=== PATIENT | female | born 1970 | race Caucasian/White ===

== ENCOUNTER 2018-03-23 17:08 | Inpatient (IN) | payer OTHER ==
[2018-03-23] MEDS ORDERED: NS 1,000 ML IV ONE ×3 (17:43→18:51)
--- NOTE | 2018-03-23 17:44 | EDPHY ---
H & P Time Seen by Provider: 03/23/18 17:27 HPI/ROS: CHIEF COMPLAINT: Confusion nausea and high calcium HISTORY OF PRESENT ILLNESS: Patient has a history of parathyroid cancer and leukemia. She has been battling slightly high calcium around 12-13 for a long time. She presented to her oncologist office today with nausea vomiting and worsening fatigue and confusion over the past 36 hr. Does know the date, trying to get to the hospital she did not take her usual route in the car, she felt confused and wanted to have her drive instead. She had a calcium drawn that was 18.9 at 14:50 today, was sent to the ER for evaluation. She also has some abdominal discomfort and nausea, denies flank pain or hematuria, is thirsty. No recent injury or trauma. REVIEW OF SYSTEMS: Eye: no change in vision ENT: no sore throat Cardiac: no chest pain or syncope Pulmonary: no cough or SOB Abdomen: HPI no diarrhea Musculoskeletal: no back pain Skin: no rash Neuro: no headache Constitutional: no fever : no urinary symptoms A comprehensive 10 point review of systems is otherwise negative aside from elements mentioned in the history of present illness. PAST MEDICAL HISTORY: Includes parathyroid cancer, leukemia, hypertension, sleep apnea and depression. Social history: Nonsmoker General Appearance: Alert and conversant, cooperative. Eyes: No scleral icterus. ENT, Mouth: Dry mucous membranes. Respiratory: Normal respiratory effort, breath sounds equal, lungs are clear to auscultation. Cardiovascular: Regular rate and rhythm. Gastrointestinal: Abdomen is soft and non tender. Neurological: Alert, face symmetric, normal motor and sensory in extremities. She does not know the date but otherwise is able to answer appropriately to questions. Skin: Warm and dry, no rashes. Musculoskeletal: No peripheral edema. Psychiatric: Not agitated. Emergency Department course/MDM: Patient presents with symptoms of hypercalcemia with confusion and nausea and vomiting dehydration. She has acute kidney injury with creatinine 2.3. IV normal saline 2 L ordered. She is kept on a skein winding operator. She will be admitted to the hospitalist service with Oncology consultation. Smoking Status: Never smoked Constitutional: Initial Vital Signs Temperature (C) 36.4 C 03/23/18 17:13 Heart Rate 103 H 03/23/18 17:13 Respiratory Rate 18 03/23/18 17:13 Blood Pressure 148/105 H 03/23/18 17:13 O2 Sat (%) 96 03/23/18 17:13 O2 Delivery Mode Room Air Allergies/Adverse Reactions: No Known Allergies Allergy (Unverified 03/23/18 17:17) Home Medications: Medication Instructions Recorded Levothyroxine 03/23/18 Losartan Potassium 03/23/18 PAMIDRONATE DISODIUM 03/23/18 Tasigna 03/23/18 Zoloft 100mg (*) 03/23/18 Medical Decision Making - Diagnostics EKG Interpretation: 12-lead EKG interpreted by me; official reading is in computer system. My interpretation is sinus rhythm rate 93, QRS 88 and QT is 344. Differential Diagnosis: Differential for weakness and confusion considered including but not limited to metabolic abnormality including hypoglycemia and hypercalcemia, sodium abnormality, stroke, seizure, infection. Consult/Admit Bed Type: for Marian Dr. Suggs and Aranza Nunez [id number] - Data Points Medications Given: Discontinued Medications Sodium Chloride (Ns) 1,000 mls @ 0 mls/hr IV EDNOW ONE; Wide Open PRN Reason: Protocol Stop: 03/23/18 17:44 Last Admin: 03/23/18 18:10 Dose: 1,000 mls Sodium Chloride (Ns) 1,000 mls @ 0 mls/hr IV EDNOW ONE; Wide Open PRN Reason: Protocol Stop: 03/23/18 17:44 Last Admin: 03/23/18 18:11 Dose: 1,000 mls Departure - Departure Disposition: [facility] Inpatient Acute Clinical Impression: Hypercalcemia, Acute kidney injury (nontraumatic) Condition: Fair
--- NOTE | 2018-03-23 17:52 | CPEKG ---
Test Reason : OPEN Blood Pressure : / mmHG Vent. Rate : 093 BPM Atrial Rate : 094 BPM P-R Int : 155 ms QRS Dur : 088 ms QT Int : 344 ms P-R-T Axes : 015 011 -49 degrees QTc Int : 428 ms Sinus rhythm LVH with secondary repolarization abnormality Confirmed by Maynor Webber ([id number]) on 03/23/2018 5:51:38 PM Referred By: Confirmed By:Maynor Webber
[2018-03-23] MEDS ORDERED: ONDANSETRON DISINTEGRATING 4 MG TAB PO PRN (18:21)
[2018-03-23] MEDS ORDERED: ACETAMINOPHEN 325 MG TAB PO PRN (18:21)
[2018-03-23] MEDS ORDERED: ZOLEDRONIC ACID 4 MG in D5W 100 ML IV ONE (18:27)
--- NOTE | 2018-03-23 18:49 | PDGENHP ---
History and Physical - Chief Complaint Hypercalcemia - History of Present Illness The patient is a 47-year-old female with past medical history of parathyroid carcinoma with mets to the liver CML hypothyroid, hypertension and depression who was sent in from her primary care's office after labs were notable for a calcium of 18.9. Patient has a history of hypercalcemia related to her parathyroid carcinoma and was due for a Zometa infusion March 16 but she missed it. She says over the last month she has developed some nausea and intestinal discomfort, along with mild confusion and mental fogginess. She has denied any chest pain racing heart shortness of breath fevers dysuria or other symptoms. History Information - Allergies/Home Medication List Allergies/Adverse Reactions: No Known Allergies Allergy (Unverified 03/23/18 17:17) Home Medications: Levothyroxine 03/23/18 [Last Taken Unknown] Losartan Potassium 03/23/18 [Last Taken Unknown] PAMIDRONATE DISODIUM 03/23/18 [Last Taken Unknown] Tasigna 03/23/18 [Last Taken Unknown] Zoloft 100mg (*) 03/23/18 [Last Taken Unknown] I have personally reviewed and updated: family history, medical history, social history, surgical history - Past Medical History Additional medical history: CML, parathyroid carcinoma, hypertension, hypothyroid, depression - Surgical History Additional surgical history: Thyroidectomy parathyroidectomy - Family History Positive for: non-pertinent - Social History Smoking Status: Never smoked Review of Systems Review of Systems: ROS: 10pt was reviewed & negative except for what was stated in HPI & below Physical Exam Physical Exam: Temp Pulse Resp BP Pulse Ox 36.4 C 78 20 140/83 H 97 03/23/18 17:13 03/23/18 18:20 03/23/18 18:20 03/23/18 18:20 03/23/18 18:20 Constitutional: no apparent distress, appears nourished, not in pain Eyes: PERRL, anicteric sclera, EOMI Ears, Nose, Mouth, Throat: moist mucous membranes, hearing normal, ears appear normal, no oral mucosal ulcers Cardiovascular: regular rate and rhythym, no murmur, rub, or gallop, No edema Peripheral Pulses: 2+: dorsalis-pedis (R), dorsalis-pedis (L) Respiratory: no respiratory distress, no rales or rhonchi, clear to auscultation Gastrointestinal: normoactive bowel sounds, soft, non-tender abdomen, no palpable masses Genitourinary: no bladder fullness, no bladder tenderness Skin: warm, normal color, no rashes or abrasions, no fluctuance, no induration, No mottled Musculoskeletal: full muscle strength, no muscle tenderness, normal joint ROM, no joint effusions Psychiatric: interacting appropriately, not anxious, not encephalopathic, thought process linear Lymph, Heme, Immunologic: no cervical LAD, no supraclavicular LAD Lab Data & Imaging Review Visualized and Interpreted EKG results: Yes Assessment & Plan Assessment: Hypercalcemia- malignant hypercalcemia related to parathyroid carcinoma. I discussed the case with the ER physician and reviewed her chart. EKG shows no ischemic changes but does show LVH and poor R-wave progression. She has known metastatic disease to her liver and lungs. Was due for a bisphosphonate infusion March 16 but missed the appointment. -IV saline -Zometa 4 mg IV now -will try to order Salman calcitonin nasal spray -check ionized calcium -Oncology to consult SKYE- patient has no known history of chronic kidney disease. She does look hypovolemic and does endorse not eating or drinking well. I suspect this is prerenal azotemia. Hopefully will correct with IV fluids. -IV saline -repeat renal function in the morning -if to fails to correct obtain urine electrolytes Parathyroid carcinoma- follows with Oncology at [facility]. Will consult Oncology while here CML- takes an oral chemotherapy medication for this. [place] [facility] [place] Will consult Oncology while here Hypothyroid- continue Synthroid when dosage confirmed Hypertension- hold losartan in setting of skye Depression- continue Zoloft Fluids- intravenous saline Electrolytes- monitor Nutrition- regular diet Cor- full code Dispo- inpatient for hypercalcemia, acute kidney injury
[2018-03-23] MEDS ORDERED: POTASSIUM CL 20 MEQ TAB PO ONE (23:18)
[2018-03-24] MEDS: NS 1,000 ML IV SCH ×3 (00:48→18:26)
[2018-03-24 04:39] LABS: PLATELET COUNT 177 10^3/uL (150-400)
[2018-03-24] MEDS ORDERED: POTASSIUM CL 20 MEQ TAB PO ONE (05:37)
[2018-03-24] MEDS: LEVOTHYROXINE 150 MCG TAB PO SCH (06:06)
[2018-03-24] MEDS ORDERED: PROTOCOL MAGNESIUM 1 DOSE IV PRN (08:35)
[2018-03-24] MEDS ORDERED: PROTOCOL POTASSIUM 1 DOSE MISC PRN (08:38)
[2018-03-24] MEDS ORDERED: NILOTINIB HCL 400 MG PO SCH ×2 (09:00→21:00)
[2018-03-24] MEDS ORDERED: MAGNESIUM SULF 1 GM/DEXTROSE 100 ML IV ONE (09:10)
[2018-03-24] MEDS: CINACALCET HCL 30 MG TAB PO SCH (09:35)
[2018-03-24] MEDS: ENOXAPARIN 40 MG/0.4 ML SYR SC SCH (09:40)
[2018-03-24] MEDS: ONDANSETRON 4 MG/2 ML VIAL IVP PRN ×2 (09:57→15:13)
[2018-03-24] MEDS: NILOTINIB HCL 400 MG PO SCH ×2 (11:03→21:02)
[2018-03-24] MEDS: CALCITONIN 200 UNITS/ML SYR IM SCH ×2 (11:18→21:13)
--- NOTE | 2018-03-24 12:02 | PDMN ---
Medical Necessity Medical necessity: Pt meets inpt criteria per MD order and [facility] M-[id number], Renal Failure, Acute, 3 days. 47 y/o w/hx of parathyroid carcinoma with mets to liver and lungs and CML, presented w/N/V, worsening fatigue and confusion over past 36 hrs, admitted w/hypercalcemia r/t parathyroid carcinoma: Ca 16.9, ionized Ca 2.29, SKYE w/BUN/creat 26/1.9, and hypokalemia w/K 2.6. IM Calcitonin, IV Mag sulfate, IVF, IV antiemetics, tele. onc consult pending. Anticipate>2MN for ongoing eval/management of above.
--- NOTE | 2018-03-24 14:44 | ASMTCMCOM ---
CM Note CM Note Notes: Spoke with pt and in the room during rounds. Pt admitted for hypercalcemia from [facility] where she is followed for parathyroid cancer and leukemia. Pt lives independently with and both feel comfortable with independent discharge. No therapies ordered. Pt independent in the room. D/C date likely a few more days. No CM needs identified at this time. CM to follow. D/C Plan: independent Date Signed: 03/24/2018 02:44 PM Electronically Signed By:Cece Glez
--- NOTE | 2018-03-24 15:00 | PDCONSULT ---
Animal Geneticist Note: Oncology consultation note Reason for consultation: Hypercalcemia in the setting of parathyroid cancer Outpatient oncologist: Yomaira Fonseca History of present illness new: Karen is a very pleasant 47-year-old female with history of chronic phase CML in history of metastatic parathyroid carcinoma who was admitted for symptomatic hypercalcemia. Karen is very well-known to our practice in sees my partner Dr. Fonseca at [facility]. Although, she is receiving the majority of her care at the [facility]. She initially had a neck dissection in 2008 and had kiersten disease with parathyroid carcinoma. She received external beam radiation 2010. Then she developed disease recurrence with metastasis to the liver that was consistent with parathyroid carcinoma. She has undergone liver directed therapy multiple times in most recently has received radioactive embolization. She does also had issues with hypercalcemia through this process and is intermittently been on denosumab alongside Zometa. She was receiving her Zometa through our clinic with the last dose being on February 15, 2018. She presented to our clinic yesterday with symptoms of nausea and vomiting. Labs were obtained that demonstrated calcium of 18. She was admitted through the [facility]. She was given IV fluids, Zometa and most recently was started on calcitonin. She continues to have nausea and vomiting. Past medical and surgical history: Chronic phase CML Metastatic parathyroid cancer Refractory hypercalcemia Hypothyroidism Thyroidectomy Parathyroidectomy Cholecystectomy Neck dissection Family history: Father with hypertension and diabetes. Mother with heart disease. Social history: She currently is . She is a never smoker. Outpatient medications: Reviewed in the EMR Allergies: No known drug allergies Review of systems: A 12 point review systems was obtained was otherwise negative Physical examination: Vital signs were reviewed General: Conversant, does not appear in any acute distress HEENT: Oropharynx is clear extra movements are intact, left-sided neck dissection noted Cardiovascular: Regular rhythm Pulmonary: Clear to auscultation Abdomen: Obese soft nontender nondistended bowel sounds are present Skin: No skin lesions Psych: Appropriate affect WBC 9.05 10^3/uL (3.80-9.50) 03/24/18 04:02 RBC 3.85 10^6/uL (4.18-5.33) L 03/24/18 04:02 Hgb 11.7 g/dL (12.6-16.3) L 03/24/18 04:02 Hct 36.1 % (38.0-47.0) L 03/24/18 04:02 MCV 93.8 fL (81.5-99.8) 03/24/18 04:02 MCH 30.4 pg (27.9-34.1) 03/24/18 04:02 MCHC 32.4 g/dL (32.4-36.7) 03/24/18 04:02 RDW 14.2 % (11.5-15.2) 03/24/18 04:02 Plt Count 177 10^3/uL (150-400) 03/24/18 04:02 MPV 12.2 fL (8.7-11.7) H 03/24/18 04:02 Neut % (Auto) 78.9 % (39.3-74.2) H 03/24/18 04:02 Lymph % (Auto) 6.4 % (15.0-45.0) L 03/24/18 04:02 [place] % (Auto) 10.7 % (4.5-13.0) 03/24/18 04:02 Eos % (Auto) 3.1 % (0.6-7.6) 03/24/18 04:02 Baso % (Auto) 0.7 % (0.3-1.7) 03/24/18 04:02 Nucleat RBC Rel Count 0.0 % (0.0-0.2) 03/24/18 04:02 Absolute Neuts (auto) 7.14 10^3/uL (1.70-6.50) H 03/24/18 04:02 Absolute Lymphs (auto) 0.58 10^3/uL (1.00-3.00) L 03/24/18 04:02 Absolute Monos (auto) 0.97 10^3/uL (0.30-0.80) H 03/24/18 04:02 Absolute Eos (auto) 0.28 10^3/uL (0.03-0.40) 03/24/18 04:02 Absolute Basos (auto) 0.06 10^3/uL (0.02-0.10) 03/24/18 04:02 Absolute Nucleated RBC 0.00 10^3/uL (0-0.01) 03/24/18 04:02 Immature Gran % 0.2 % (0.0-1.1) 03/24/18 04:02 Immature Gran # 0.02 10^3/uL (0.00-0.10) 03/24/18 04:02 RBC/WBC/PLT Morphology TNP 03/24/18 04:02 Platelet Estimate TNP 03/24/18 04:02 Sodium 137 mEq/L (135-145) 03/24/18 04:02 Potassium 3.1 mEq/L (3.5-5.2) L 03/24/18 04:02 Chloride 110 mEq/L (97-110) 03/24/18 04:02 Carbon Dioxide 23 mEq/l (22-31) 03/24/18 04:02 Anion Gap 4 mEq/L (6-14) L 03/24/18 04:02 BUN 25 mg/dL (7-23) H 03/24/18 04:02 Creatinine 1.9 mg/dL (0.6-1.0) H 03/24/18 04:02 Estimated GFR 29 03/24/18 04:02 Glucose 90 mg/dL (70-100) 03/24/18 04:02 Calcium 16.0 mg/dL (8.5-10.4) H* 03/24/18 04:02 Ionized Calcium 2.29 MMOL/L (1.12-1.30) H* 03/23/18 22:32 Phosphorus 3.3 mg/dL (2.5-4.5) 03/24/18 04:02 Magnesium 1.5 mg/dL (1.6-2.3) L 03/24/18 04:02 Total Bilirubin 0.9 mg/dL (0.1-1.4) 03/24/18 04:02 AST 44 IU/L (14-46) 03/24/18 04:02 ALT 30 IU/L (9-52) 03/24/18 04:02 Alkaline Phosphatase 233 IU/L (38-126) H 03/24/18 04:02 Total Protein 5.9 g/dL (6.3-8.2) L 03/24/18 04:02 Albumin 3.1 g/dL (3.5-5.0) L 03/24/18 04:02 TSH 0.022 uIU/mL (0.465-4.680) L 03/24/18 04:02 Assessment plan: Karen is a 47-year-old female with history of metastatic hyperparathyroidism who was admitted for symptomatic hypercalcemia. 1. Symptomatic hypercalcemia: She receive Zometa and IV fluids in the ER. I recommended initiating calcitonin as well which is done today. I suspect that she will either need Zometa more frequently or will need to switch to Xgeva thereafter. I recommend monitoring calcium Q 12 hr. If we cannot normalized her calcium over the next few days I would recommend giving her dose of Xgeva. -continue normal saline -continue calcitonin -monitor calcium Q 12 hr 2. Nausea vomiting: I suspect this is secondary to the hypercalcemia. 3. Metastatic hyperparathyroidism: She is receiving the majority of her care at the [facility]. All questions were answered. She voiced understanding the plan.
--- NOTE | 2018-03-24 16:43 | HOSPPROG ---
Hospitalist Progress Note Assessment/Plan: * Hypercalcemia -s/p Zometa -SQ Calcitonin added -d/w Dr. Suggs - check Ca++ BID while on Calcitonin -if Ca fails to improve, consider Xgeva * Parathyroid cancer with liver/lung mets -recent XRT to liver -patient desires restaging as concerned increased Ca c/w worsening tumor burden -recommended outpatient imaging at [facility] where other radiology has been * CML -continue Nilotinib * Metabolic encephalopathy due to hypercalcemia -per family confusion is improving * ARF due to hypercalcemia -hold ARB Subjective: Persistent N/V Objective: Vital Signs Temp Pulse Resp BP Pulse Ox 36.6 C 120 H 16 158/103 H 91 L 03/24/18 15:46 03/24/18 15:46 03/24/18 15:46 03/24/18 15:46 03/24/18 15:46 Laboratory Results 03/24/18 04:02 03/24/18 04:02 03/23/18 03/24/18 03/25/18 05:59 05:59 05:59 Intake Total 1700 2668 Output Total 1975 3150 Balance -275 -482 EKG viewed, my personal interpretation is - NSR, no ST changes - Physical Exam Constitutional: no apparent distress, appears nourished, not in pain Cardiovascular: regular rate and rhythym, no murmur, rub, or gallop Respiratory: no respiratory distress, no rales or rhonchi, clear to auscultation Gastrointestinal: normoactive bowel sounds, soft, non-tender abdomen, no palpable masses Skin: no rashes or abrasions, no fluctuance, no induration Neurologic: AAOx3, sensation intact bilaterally Psychiatric: interacting appropriately, not anxious, not encephalopathic, thought process linear ICD10 Worksheet Patient Problems: Problems Problem Status Onset Hypercalcemia Acute Acute kidney injury (nontraumatic) Acute
[2018-03-24] MEDS ORDERED: POTASSIUM CL 10 MEQ TAB PO ONE (19:55)
[2018-03-24] MEDS: SERTRALINE HCL 50 MG TAB PO SCH (21:03)
[2018-03-25] MEDS: NS 1,000 ML IV SCH ×2 (03:00→21:17)
[2018-03-25 05:29] LABS: PLATELET COUNT 203 10^3/uL (150-400)
[2018-03-25 05:38] LABS: INR 1.12 (0.83-1.16); PROTIME(PATIENT) 14.6 SEC (12.0-15.0)
[2018-03-25] MEDS: PROMETHAZINE HCL 25 MG/ML INJ IVP PRN ×2 (06:37→12:32)
[2018-03-25] MEDS ORDERED: POTASSIUM CL 10 MEQ TAB PO ONE ×2 (08:14→20:10)
[2018-03-25] MEDS ORDERED: MAGNESIUM SULF 2 GM/WATER 50 ML IV ONE ×2 (08:15→09:45)
[2018-03-25] MEDS: LEVOTHYROXINE 150 MCG TAB PO SCH (08:42)
[2018-03-25] MEDS: ONDANSETRON 4 MG/2 ML VIAL IVP PRN ×2 (08:43→15:52)
[2018-03-25] MEDS: CINACALCET HCL 30 MG TAB PO SCH (08:44)
[2018-03-25] MEDS: ENOXAPARIN 40 MG/0.4 ML SYR SC SCH (08:45)
[2018-03-25] MEDS ORDERED: K PHOS 15 MMOL in D5W 250 ML IV ONE (12:00)
--- NOTE | 2018-03-25 12:48 | SOAPPROG ---
SOHERNANDO Progress Note Assessment/Plan: Assessment: 1 - Hypercalcemia due to metastatic parathyroid carcinoma - has liver directed therapy at [facility] about 1 month ago. Calcium spike of unclear etiology but may be due either to therapy effect (cancer cell and release of intracellular contents) vs. worsening disease outside of liver. Further imaging as an outpatient will clarify the picture. She apparently has f/u scheduled at [facility] on 27 MAR 2018. Her calcium is now back to baseline for her. She is still a bit nauseated. She may need Zometa and Xgeva to control her calcium going forward. 2 - CML - WBC is up a little today. Will watch. Plan: - Calcium is at baseline. I would d/c to home when she feels stable and is taking adequate PO - F/U at [facility] on Tuesday as planned - F/U with Dr. Dilshad Fonseca per her routine. Subjective: Slightly nauseated. Objective: Vital Signs Temp Pulse Resp BP Pulse Ox 36.8 C 105 H 25 H 135/92 H 94 03/25/18 12:10 03/25/18 12:10 03/25/18 12:10 03/25/18 12:10 03/25/18 12:10 Laboratory Results 03/25/18 04:40 03/25/18 04:40 03/23/18 03/24/18 03/25/18 23:59 23:59 23:59 Intake Total 1000 5747 2255 Output Total 800 6075 1350 Balance 200 -328 905 PT 14.6 SEC (12.0-15.0) 03/25/18 04:40 INR 1.12 (0.83-1.16) 03/25/18 04:40 Physical Exam - Physical Exam General Appearance: alert, mild distress Neuro/Psych: oriented x 3 ICD10 Worksheet Patient Problems: Problems Problem Status Onset Acute kidney injury (nontraumatic) Acute Hypercalcemia Acute
[2018-03-25] MEDS: NILOTINIB HCL 400 MG PO SCH ×2 (13:29→21:16)
[2018-03-25] MEDS ORDERED: PROTOCOL K PHOSPHATE 1 DOSE IV PRN (14:28)
--- NOTE | 2018-03-25 16:05 | HOSPPROG ---
Hospitalist Progress Note Assessment/Plan: * Hypercalcemia -s/p Zometa -SQ Calcitonin added - Ca rapidly falling - hold Calcitonin -failed outpatient Zometa - consider change Xgeva as outpatient * Parathyroid cancer with liver/lung mets -recent XRT to liver -patient desires restaging as concerned increased Ca c/w worsening tumor burden -recommended outpatient imaging at [facility] where other radiology has been * CML -continue Nilotinib * Metabolic encephalopathy due to hypercalcemia -improved * ARF due to hypercalcemia -hold ARB -continue IVF Subjective: Still N/V this am Objective: Vital Signs Temp Pulse Resp BP Pulse Ox 36.8 C 110 H 28 H 153/100 H 94 03/25/18 15:52 03/25/18 15:52 03/25/18 15:52 03/25/18 15:52 03/25/18 15:52 Laboratory Results 03/25/18 04:40 03/25/18 04:40 03/24/18 03/25/18 03/26/18 05:59 05:59 05:59 Intake Total 1700 6047 1495 Output Total 1975 5750 2700 Balance -275 297 -1205 PT 14.6 SEC (12.0-15.0) 03/25/18 04:40 INR 1.12 (0.83-1.16) 03/25/18 04:40 d/w Dr. Glass - agrees with holding Calcitonin tele reviewed - sinus tachy - Physical Exam Constitutional: no apparent distress, appears nourished, not in pain Cardiovascular: regular rate and rhythym, no murmur, rub, or gallop Respiratory: no respiratory distress, no rales or rhonchi, clear to auscultation Gastrointestinal: normoactive bowel sounds, soft, non-tender abdomen, no palpable masses Skin: no rashes or abrasions, no fluctuance, no induration Neurologic: AAOx3, sensation intact bilaterally Psychiatric: interacting appropriately, not anxious, not encephalopathic, thought process linear ICD10 Worksheet Patient Problems: Problems Problem Status Onset Hypercalcemia Acute Acute kidney injury (nontraumatic) Acute
[2018-03-25] MEDS: SERTRALINE HCL 50 MG TAB PO SCH (21:16)
[2018-03-26 04:22] LABS: PLATELET COUNT 202 10^3/uL (150-400)
[2018-03-26] MEDS: LEVOTHYROXINE 150 MCG TAB PO SCH (06:11)
[2018-03-26] MEDS: NS 1,000 ML IV SCH (06:11)
[2018-03-26] MEDS: CINACALCET HCL 30 MG TAB PO SCH (08:58)
[2018-03-26] MEDS: ENOXAPARIN 40 MG/0.4 ML SYR SC SCH (08:59)
[2018-03-26] MEDS: ONDANSETRON 4 MG/2 ML VIAL IVP PRN (09:01)
[2018-03-26] MEDS: NILOTINIB HCL 400 MG PO SCH (09:32)
[2018-03-26] MEDS ORDERED: POTASSIUM CL 10 MEQ TAB PO ONE (10:49)
[2018-03-26] MEDS ORDERED: MAGNESIUM SULF 2 GM/WATER 50 ML IV ONE (10:52)
[2018-03-26 11:50] VITALS: BP 136/89
[2018-03-26] MEDS: PROMETHAZINE HCL 25 MG/ML INJ IVP PRN (12:02)
--- NOTE | 2018-03-26 12:44 | SOAPPROG ---
CRYSTAL Progress Note Assessment/Plan: Assessment: 1 - Hypercalcemia due to metastatic parathyroid carcinoma - has liver directed therapy at [facility] about 1 month ago. Calcium spike of unclear etiology but may be due either to therapy effect (cancer cell and release of intracellular contents) vs. worsening disease outside of liver. Further imaging as an outpatient will clarify the picture. She apparently has f/u scheduled at [facility] on 27 MAR 2018. Her calcium is now 11.1 and is back to baseline for her. She is still a bit nauseated but feels like she can treat this at home with her outpatient meds. She may need Zometa and Xgeva to control her calcium going forward. 2 - CML - WBC is stable. Plan: - Calcium is at baseline. I think she can go home today. - F/U at [facility] on Tuesday as planned - F/U with Dr. Dilshad Fonseca per her routine. Subjective: Sitting up. Smiling. Feels like she is back to baseline. Objective: Vital Signs Temp Pulse Resp BP Pulse Ox 37.0 C 97 18 136/89 H 95 03/26/18 11:45 03/26/18 11:45 03/26/18 11:45 03/26/18 11:45 03/26/18 11:45 Laboratory Results 03/26/18 04:06 03/26/18 04:06 03/24/18 03/25/18 03/26/18 23:59 23:59 23:59 Intake Total 5747 4429 1858 Output Total 6075 4250 2350 Balance -328 179 -492 PT 14.6 SEC (12.0-15.0) 03/25/18 04:40 INR 1.12 (0.83-1.16) 03/25/18 04:40 Physical Exam - Physical Exam General Appearance: alert, no apparent distress Respiratory: lungs clear Cardiac/Chest: regular rate, rhythm Abdomen: normal bowel sounds, soft Skin: warm/dry Neuro/Psych: alert, normal mood/affect, oriented x 3 ICD10 Worksheet Patient Problems: Problems Problem Status Onset Acute kidney injury (nontraumatic) Acute Hypercalcemia Acute
--- NOTE | 2018-03-26 13:08 | HOSPPROG ---
Hospitalist Progress Note Assessment/Plan: 47 yo F w hypercalcemia Hypercalcemia -s/p Zometa -SQ Calcitonin added - Ca rapidly falling - hold Calcitonin -failed outpatient Zometa - consider change Xgeva as outpatient Parathyroid cancer with liver/lung mets -recent XRT to liver -patient desires restaging as concerned increased Ca c/w worsening tumor burden -recommended outpatient imaging at [facility] where other radiology has been CML -continue Nilotinib Metabolic encephalopathy due to hypercalcemia -improved ARF due to hypercalcemia -hold ARB -continue IVF home today see dc summary > 30minutes Subjective: ca normalized. feels at baseline. case d/w r sitarik Objective: Vital Signs Temp Pulse Resp BP Pulse Ox 37.0 C 97 18 136/89 H 95 03/26/18 11:45 03/26/18 11:45 03/26/18 11:45 03/26/18 11:45 03/26/18 11:45 Laboratory Results 03/26/18 04:06 03/26/18 04:06 03/25/18 03/26/18 03/27/18 05:59 05:59 05:59 Intake Total 6047 3929 1358 Output Total 5750 5050 700 Balance 297 -1121 658 PT 14.6 SEC (12.0-15.0) 03/25/18 04:40 INR 1.12 (0.83-1.16) 03/25/18 04:40 - Physical Exam Constitutional: no apparent distress, appears nourished Eyes: PERRL, anicteric sclera Ears, Nose, Mouth, Throat: moist mucous membranes, hearing normal Cardiovascular: regular rate and rhythym, no murmur, rub, or gallop Respiratory: no respiratory distress, no rales or rhonchi Gastrointestinal: normoactive bowel sounds, soft, non-tender abdomen Genitourinary: No charles in urethra Skin: warm, normal color Musculoskeletal: full muscle strength Neurologic: AAOx3 ICD10 Worksheet Patient Problems: Problems Problem Status Onset Acute kidney injury (nontraumatic) Acute Hypercalcemia Acute
--- NOTE | 2018-03-26 13:18 | ASDISCHSUM ---
Discharge Information Plan Status:Home with No Needs Medically Cleared to Leave:03/25/2018 Discharge Date:03/25/2018 CM D/C Disposition:Home, Routine, Self-Care ADT D/C Disposition: Projected Discharge Date:03/25/2018 Transportation at D/C:Family Discharge Delay Reason: Follow-Up Date:03/25/2018 Discharge Slot: Final Diagnosis:SKYE, Hypercalcemia Placement Information Patient Contact Information Contact Name:CONSTANTINO Relationship: Address:[address] Phone: City:[place] Alternate Phone: State/Zip Code:[place] [address] Email: Financial Information Financial Class:HMO and PPO Plans Primary Plan Desc:[facility] Primary Plan Number:[id number] Secondary Plan Desc: Secondary Plan Number: Assessment Information LACE LACE Length of stay for Answers: 2 days current admission Acuity / Level of Answers: Yes Care: Did the patient have an inpatient admission? Comorbidities - select Answers: Any tumor (including all that apply lymphoma or leukemia) Other Notes: HTN; Hypothyroid # of Emergency department Answers: 1-2 visits in the last 6 months Social determinants Answers: Mental health diagnosis (anxiety, depression, pers onality disorders, etc.) Score: 12 Date Signed: 03/26/2018 01:17 PM Electronically Signed By:Cece Glez [facility] CM Progress Note CM Note CM Note Notes: Spoke with pt and in the room during rounds. Pt admitted for hypercalcemia from [facility] where she is followed for parathyroid cancer and leukemia. Pt lives independently with and both feel comfortable with independent discharge. No therapies ordered. Pt independent in the room. D/C date likely a few more days. No CM needs identified at this time. CM to follow. D/C Plan: independent Date Signed: 03/24/2018 02:44 PM Electronically Signed By:Cece Glez Case Management Discharge Plan Note Case Management Discharge Discharge Order Complete? Answers: Yes Patient to Obtain Answers: via Family Medications Transportation Arranged Answers: Family/Friends Transport will Pick (Date 03/26/2018 12:00 AM & Time) Family Notified Answers: Yes Notes: in the room Discharge Comments Notes: Spoke with pt in the room. Pt to discharge independently and is comfortable with this plan. No CM needs noted at this time. Date Signed: 03/26/2018 01:16 PM Electronically Signed By:Cece Glez Intervention Information
--- NOTE | 2018-03-26 13:50 | GDS ---
DISCHARGE DIAGNOSES: 1. Hypercalcemia malignancy. 2. Metastatic parathyroid cancer. 3. CML. 4. Hypertension. 5. Acute kidney injury. HOSPITAL COURSE: Please see admission history and physical by Dr. Boris Shankar. The patient presented from her primary care physician's call after outpatient labs and a calcium of 18.9. She m issed her most recent Zometa infusion. There may have been a bit of mental fogginess going on over t he last couple of days. She received volume resuscitation as well and is on calcitonin and Zometa. Her calcium came down nicely from 16.9 on presentation to 11.1, which is about her baseline. Her cre atinine came down to 1.6 from 1.9, which is a little bit higher than her baseline. The patient is eu volemic. She has outpatient followup with [facility] where she receives care for her metast atic parathyroid cancer. [facility]. S he is discharged home with unchanged medication regimen. Sensipar was continued. /[id number]/MODL
== END 2018-03-26 14:44 | disposition home or self-care (01) | DRG 641 ==
LOC: F1N 19:36
PROVIDERS: ADMIT Internal Medicine; ATTEND Internal Medicine
DX: E83.52 Hypercalcemia (principal); N17.9 Acute kidney failure, unspecified; C78.7 Secondary malignant neoplasm of liver and intrahepatic bile duct; C78.00 Secondary malignant neoplasm of unspecified lung; Z85.858 Personal history of malignant neoplasm of other endocrine glands; I10 Essential (primary) hypertension; C95.90 Leukemia, unspecified not having achieved remission; G47.30 Sleep apnea, unspecified; F32.9 Major depressive disorder, single episode, unspecified
CPT/HCPCS: J0630; J1650; J2405; J2550; J3475; J3489

== ENCOUNTER 2018-05-30 21:00 | Inpatient (IN) | payer OTHER ==
--- NOTE | 2018-05-30 21:34 | EDPHY ---
H & P Time Seen by Provider: 05/30/18 21:23 HPI/ROS: Chief complaint. Worsening edema HPI. 47-year-old female here by EMS. She complains of worsening swelling to hands and feet. She has a history of parathyroid cancer and CML. She was hospitalized for approximately 1 [facility]. She was discharged home May 17. Since that time she has had it is progressive swelling to hands and feet. Denies shortness of breath or chest pain. No abdominal pain or vomiting or diarrhea. She began Lasix last week and despite this the edema seems to be progressing. No fever. Decreased oral intake. ROS 10 systems were reviewed and negative with the exception of the elements mentioned in the history of present illness Past Medical/Surgical History: Past medical history is parathyroid cancer, CML, hypertension, depression, sleep apnea, obesity, thyroidectomy, cholecystectomy Social History: Single, nonsmoker, no alcohol Smoking Status: Never smoked Physical Exam: General Appearance: Alert well-developed female mild distress vital signs significant heart rate 105 Eyes: Pupils equal and round no pallor or injection. ENT, Mouth: Mucous membranes are moist. Respiratory: There are no retractions, lungs are clear to auscultation. Cardiovascular: Regular rate and rhythm. Gastrointestinal: Abdomen is soft and nontender, no masses, bowel sounds normal. Neurological: Awake and alert, sensory and motor exams grossly normal. Skin: Warm and dry, no rashes. Musculoskeletal: Neck is supple nontender. Extremities 4+ edema to lower extremities. Slight edema to hands. Psychiatric: Patient is oriented X 3, there is no agitation. Constitutional: Initial Vital Signs Temperature (C) 36.7 C 05/30/18 21:04 Heart Rate 105 H 05/30/18 21:04 Respiratory Rate 18 05/30/18 21:04 Blood Pressure 148/90 H 05/30/18 21:04 O2 Sat (%) 97 05/30/18 21:04 O2 Delivery Mode Room Air Allergies/Adverse Reactions: No Known Allergies Allergy (Verified 05/30/18 21:09) Home Medications: Medication Instructions Recorded Ibuprofen [Motrin (*)] 400 mg PO Q8H PRN 03/23/18 Levothyroxine [Synthroid 150 mcg 150 mcg PO DAILY06 03/23/18 (*)] Sertraline HCl 50 mg PO HS 03/23/18 Nilotinib HCl [Tasigna] 400 mg PO BID 03/24/18 Lasix 05/30/18 Potassium Chloride 05/30/18 Proair Hfa 05/30/18 Reglan 05/30/18 Sodium Bicarbonate 05/30/18 Tessalon Pearles 05/30/18 Zosyn 05/30/18 Medical Decision Making - Diagnostics EKG Interpretation: EKG interpreted by me shows sinus tachycardia normal interval and axis. QRS otherwise normal. No significant ST elevation or depression. No arrhythmia. The rate 104 Imaging Results: Imaging Impressions Chest X-Ray 05/30/18 21:34 Impression: 1. Mild fluid overload suspected. Procedures: IV normal saline, monitor ED Course/Re-evaluation: Patient has anemia, renal failure and elevated troponin. She also has elevated BNP. Patient and I discussed treatment plan including recommendation for admission. She expresses understanding and agreement I consulted discussed case with Dr. Cheng, hospitalist, who agrees to the admission Differential Diagnosis: Likely the troponin is due to her renal insufficiency. She does have CHF. She is anemic likely post surgery. - Data Points Laboratory Results: Laboratory Results 05/30/18 21:30 05/30/18 21:30 05/30/18 05/30/18 21:30 21:30 WBC 7.08 10^3/uL 10^3/uL (3.80-9.50) RBC 2.62 10^6/uL L 10^6/uL (4.18-5.33) Hgb 8.3 g/dL L g/dL (12.6-16.3) Hct 24.9 % L % (38.0-47.0) MCV 95.0 fL fL (81.5-99.8) MCH 31.7 pg pg (27.9-34.1) MCHC 33.3 g/dL g/dL (32.4-36.7) RDW 24.6 % H % (11.5-15.2) Plt Count 213 10^3/uL 10^3/uL (150-400) MPV 10.9 fL fL (8.7-11.7) Neut % (Auto) 59.7 % % (39.3-74.2) Lymph % (Auto) 10.0 % L % (15.0-45.0) [place] % (Auto) 21.9 % H % (4.5-13.0) Eos % (Auto) 7.3 % % (0.6-7.6) Baso % (Auto) 0.8 % % (0.3-1.7) Nucleat RBC Rel Count 0.0 % % (0.0-0.2) Absolute Neuts (auto) 4.23 10^3/uL 10^3/uL (1.70-6.50) Absolute Lymphs (auto) 0.71 10^3/uL L 10^3/uL (1.00-3.00) Absolute Monos (auto) 1.55 10^3/uL H 10^3/uL (0.30-0.80) Absolute Eos (auto) 0.52 10^3/uL H 10^3/uL (0.03-0.40) Absolute Basos (auto) 0.06 10^3/uL 10^3/uL (0.02-0.10) Absolute Nucleated RBC 0.00 10^3/uL 10^3/uL (0-0.01) Immature Gran % 0.3 % % (0.0-1.1) Immature Gran # 0.02 10^3/uL 10^3/uL (0.00-0.10) RBC/WBC/PLT Morphology TNP Platelet Estimate TNP Polychromasia 1+ H Hypochromasia 1+ H Microcytic Cells 2+ H Target Cells 1+ H Tear Drop Cells 1+ H Oval Macrocytes 2+ H Elliptocytes 1+ H Schistocytes 1+ H Sodium 136 mEq/L mEq/L (135-145) Potassium 3.0 mEq/L L mEq/L (3.5-5.2) Chloride 105 mEq/L mEq/L (97-110) Carbon Dioxide 20 mEq/l L mEq/l (22-31) Anion Gap 11 mEq/L mEq/L (6-14) BUN 21 mg/dL mg/dL (7-23) Creatinine 3.2 mg/dL H mg/dL (0.6-1.0) Estimated GFR 16 Glucose 105 mg/dL H mg/dL (70-100) Calcium 7.0 mg/dL L mg/dL (8.5-10.4) Total Bilirubin 4.3 mg/dL H mg/dL (0.1-1.4) Conjugated Bilirubin 3.6 mg/dL H mg/dL (0.0-0.5) Unconjugated Bilirubin 0.7 mg/dL mg/dL (0.0-1.1) AST 282 IU/L H IU/L (14-46) ALT 117 IU/L H IU/L (9-52) Alkaline Phosphatase 1673 IU/L H IU/L (38-126) NT-Pro-B Natriuret Pep 3440 pg/mL H pg/mL (0-125) Total Protein 5.7 g/dL L g/dL (6.3-8.2) Albumin 2.6 g/dL L g/dL (3.5-5.0) Departure - Departure Disposition: [facility] Inpatient Acute Clinical Impression: Congestive heart failure Qualifiers: Heart failure type: unspecified Heart failure chronicity: chronic Qualified Code(s): I50.9 - Heart failure, unspecified Condition: Fair
[2018-05-30 21:51] LABS: PLATELET COUNT 213 10^3/uL (150-400)
[2018-05-30] MEDS ORDERED: ONDANSETRON 4 MG/2 ML VIAL IVP PRN (22:53)
[2018-05-30] MEDS ORDERED: ONDANSETRON DISINTEGRATING 4 MG TAB PO PRN (22:53)
--- NOTE | 2018-05-30 23:40 | CPEKG ---
Test Reason : OPEN Blood Pressure : / mmHG Vent. Rate : 104 BPM Atrial Rate : 104 BPM P-R Int : 113 ms QRS Dur : 094 ms QT Int : 395 ms P-R-T Axes : 042 036 027 degrees QTc Int : 520 ms Sinus tachycardia Low voltage, precordial leads Borderline T abnormalities, anterior leads Prolonged QT interval Confirmed by David Elliott ([id number]) on 05/30/2018 11:39:50 PM Referred By: David Elliott Confirmed By:David Elliott
[2018-05-31] MEDS: FUROSEMIDE 40 MG/4 ML VIAL IVP SCH ×3 (00:21→14:00)
[2018-05-31] MEDS: ACETAMINOPHEN 325 MG TAB PO PRN (00:23)
--- NOTE | 2018-05-31 00:48 | PDGENHP ---
History and Physical - Chief Complaint Edema - History of Present Illness 47 yo F w/ hx of parathyroid carcinoma with recent complicated course presents with swelling. The patient was admitted at [facility] from 04/17-05/17 where she initially presented with hypercalcemia. Her course there was complicated by diagnostic laparoscopy converted to ex-lap, BSO, and right ureterolysis for significant adhesive disease complicated by rectus sheath hematoma as well as R pelvic abscess. She was discharged on Zosyn. She also developed a significant SKYE with creatinine as high as 4. Per patient and discharge summary she was noted to be hypervolemic at time of discharge but diuretics were avoided due to recent SKYE. She was seen at renal clinic on 05/24 and started on furosemide 40 mg PO BID. Despite this, her edema continued to worsen and she presents today frustrated with the amount of swelling she has developed. During my evaluation the patient is displaying clear anasarca. He creatinine is 3.2 and LFTs are elevated from discharge values. She has known metastatic hepatic disease. She denies chest pain, SOB, or hx of cardiac disease. Case discussed with ED physician Dr. Elliott; records in [facility] reviewed and summarized above. History Information - Allergies/Home Medication List Allergies/Adverse Reactions: No Known Allergies Allergy (Verified 05/30/18 21:09) Home Medications: Ibuprofen [Motrin (*)] 400 mg PO Q8H PRN 03/23/18 [Last Taken Unknown] Levothyroxine [Synthroid 150 mcg (*)] 150 mcg PO DAILY06 03/23/18 [Last Taken ] Sertraline HCl 50 mg PO HS 03/23/18 [Last Taken 03/22/18] Nilotinib HCl [Tasigna] 400 mg PO BID 03/24/18 [Last Taken Unknown] Lasix 05/30/18 [Last Taken Unknown] Potassium Chloride 05/30/18 [Last Taken Unknown] Proair Hfa 05/30/18 [Last Taken Unknown] Reglan 05/30/18 [Last Taken Unknown] Sodium Bicarbonate 05/30/18 [Last Taken Unknown] Tessalon Pearles 05/30/18 [Last Taken Unknown] Zosyn 05/30/18 [Last Taken Unknown] I have personally reviewed and updated: family history, medical history - Past Medical History Additional medical history: CML, parathyroid carcinoma, hypertension, hypothyroid, depression - Surgical History Additional surgical history: Thyroidectomy parathyroidectomy. Diagnostic laparoscopy converted to ex-lap, BSO, and right ureterolysis - Family History Additional family history: Denies family hx of CKD - Social History Smoking Status: Never smoked Review of Systems Review of Systems: ROS: 10pt was reviewed & negative except for what was stated in HPI & below Physical Exam Physical Exam: Temp Pulse Resp BP Pulse Ox 36.6 C 104 H 19 121/64 H 98 05/31/18 00:00 05/31/18 00:00 05/31/18 00:00 05/31/18 00:00 05/31/18 00:00 Constitutional: obese, uncomfortable Eyes: PERRL, EOMI Ears, Nose, Mouth, Throat: moist mucous membranes, no oral mucosal ulcers Cardiovascular: regular rate and rhythym, no murmur, rub, or gallop, edema ( Severe, notable at least as high as sacrum) Respiratory: no respiratory distress, clear to auscultation Gastrointestinal: normoactive bowel sounds, distension Skin: warm, other (Anasarca) Musculoskeletal: full muscle strength, no muscle tenderness Neurologic: AAOx3, CN II-XII Intact Psychiatric: interacting appropriately, not anxious Lab Data & Imaging Review 05/30/18 21:30 05/30/18 21:30 WBC 7.08 10^3/uL (3.80-9.50) 05/30/18 21:30 RBC 2.62 10^6/uL (4.18-5.33) L 05/30/18 21:30 Hgb 8.3 g/dL (12.6-16.3) L 05/30/18 21:30 Hct 24.9 % (38.0-47.0) L 05/30/18 21:30 MCV 95.0 fL (81.5-99.8) 05/30/18 21:30 MCH 31.7 pg (27.9-34.1) 05/30/18 21:30 MCHC 33.3 g/dL (32.4-36.7) 05/30/18 21:30 RDW 24.6 % (11.5-15.2) H 05/30/18 21:30 Plt Count 213 10^3/uL (150-400) 05/30/18 21:30 MPV 10.9 fL (8.7-11.7) 05/30/18 21:30 Neut % (Auto) 59.7 % (39.3-74.2) 05/30/18 21:30 Lymph % (Auto) 10.0 % (15.0-45.0) L 05/30/18 21:30 [place] % (Auto) 21.9 % (4.5-13.0) H 05/30/18 21:30 Eos % (Auto) 7.3 % (0.6-7.6) 05/30/18 21:30 Baso % (Auto) 0.8 % (0.3-1.7) 05/30/18 21: Nucleat RBC Rel Count 0.0 % (0.0-0.2) 05/30/18 21: Absolute Neuts (auto) 4.23 10^3/uL (1.70-6.50) 05/30/18 21:30 Absolute Lymphs (auto) 0.71 10^3/uL (1.00-3.00) L 05/30/18 21:30 Absolute Monos (auto) 1.55 10^3/uL (0.30-0.80) H 05/30/18 21:30 Absolute Eos (auto) 0.52 10^3/uL (0.03-0.40) H 05/30/18 21:30 Absolute Basos (auto) 0.06 10^3/uL (0.02-0.10) 05/30/18 21:30 Absolute Nucleated RBC 0.00 10^3/uL (0-0.01) 05/30/18 21:30 Immature Gran % 0.3 % (0.0-1.1) 05/30/18 21: Immature Gran # 0.02 10^3/uL (0.00-0.10) 05/30/18 21:30 RBC/WBC/PLT Morphology TNP 05/30/18 21:30 Platelet Estimate TNP 05/30/18 21:30 Polychromasia 1+ H 05/30/18 21:30 Hypochromasia 1+ H 05/30/18 21:30 Microcytic Cells 2+ H 05/30/18 21:30 Target Cells 1+ H 05/30/18 21:30 Tear Drop Cells 1+ H 05/30/18 21:30 Oval Macrocytes 2+ H 05/30/18 21:30 Elliptocytes 1+ H 05/30/18 21:30 Schistocytes 1+ H 05/30/18 21:30 Sodium 136 mEq/L (135-145) 05/30/18 21:30 Potassium 3.0 mEq/L (3.5-5.2) L 05/30/18 21:30 Chloride 105 mEq/L (97-110) 05/30/18 21:30 Carbon Dioxide 20 mEq/l (22-31) L 05/30/18 21:30 Anion Gap 11 mEq/L (6-14) 05/30/18 21:30 BUN 21 mg/dL (7-23) 05/30/18 21:30 Creatinine 3.2 mg/dL (0.6-1.0) H 05/30/18 21:30 Estimated GFR 16 05/30/18 21:30 Glucose 105 mg/dL (70-100) H 05/30/18 21:30 Calcium 7.0 mg/dL (8.5-10.4) L 05/30/18 21:30 Total Bilirubin 4.3 mg/dL (0.1-1.4) H 05/30/18 21:30 Conjugated Bilirubin 3.6 mg/dL (0.0-0.5) H 05/30/18 21:30 Unconjugated Bilirubin 0.7 mg/dL (0.0-1.1) 05/30/18 21:30 AST 282 IU/L (14-46) H 05/30/18 21:30 ALT 117 IU/L (9-52) H 05/30/18 21:30 Alkaline Phosphatase 1673 IU/L (38-126) H 05/30/18 21:30 NT-Pro-B Natriuret Pep 3440 pg/mL (0-125) H 05/30/18 21:30 Total Protein 5.7 g/dL (6.3-8.2) L 05/30/18 21:30 Albumin 2.6 g/dL (3.5-5.0) L 05/30/18 21:30 Imaging Review: Imaging Impressions Chest X-Ray 05/30/18 21:34 Impression: 1. Mild fluid overload suspected. Visualized and Interpreted EKG results: Yes EKG Interpretation: Positive for: normal sinsus rhythm, other (Sinus tach) Assessment & Plan Assessment: 47 yo F w/ hx of parathyroid carcinoma with recent complicated course presents with anasarca. Plan: 1. Anasarca - Per review of records and conversation with patient this has been progressive for about a month. I suspect the etiology is due to renal failure, proteinuria, and hepatic dysfunction. She has no prior cardiac history. She was started on furosemide 40 mg PO BID on 05/24 by her renal doctor but this seems to have had minimal effect. - Will start furosemide 40 mg IV BID, gauge effect and titrate accordingly - Monitor I/Os BID - Daily weights - Monitor renal function closely - Will order TTE to rule out cardiac component 2. Sub-acute SKYE on CKD - Serum creatinine baseline seems to be in 1-1.6 range. Her creatinine level shannan as high as 4 during most recent admission at [facility] and is 3.2 at the time of admission. She reports fairly brisk urine output. - Monitor BMP, check UA w/ micro - Renally dose medications - Renal consult in the morning 3. Abnormal LFTs - Elevated AST/ALT, Alk P, and bilirubin noted on admission. These values are increasing compared to most recent comparison (05/17 available in [facility]). She has known hepatic metastatic disease, unclear if additional process is ongoing. - RUQ U/S ordered for further evaluation - Monitor LFTs 4. Metastatic parathyroid carcinoma - With known metastases to liver, lungs, LNs , and ovaries. S/p RFA and Y-90 to liver. She underwent BSO on 04/21; this was converted to open procedure and was c/b hematoma and abscess. - Consider oncology consult 5. R pelvic wall abscess - Likely a complication of recent surgery. This was treated with about 3 weeks of Zosyn IV. Per patient therapy was stopped due to worsening liver function. She has no clear signs of active infection at this time. 6. Normocytic anemia - H/H stable from recent values. Etiology is multifactorial from blood loss due to surgery, malignancy, renal dysfunction, and malnutrition. - Monitor CBC 7. Hypertension - ARB on hold due to SKYE, she is currently normotensive. 8. CML - In remission, follows with Dr. Fonseca at [facility]. 9. Hypothyroid - Continue LTX. Diet - Cardiac Code - Full Ppx - SCDs noting recent hematoma complicating surgery Dispo - Admit under inpatient status
[2018-05-31 04:31] LABS: PLATELET COUNT 216 10^3/uL (150-400)
[2018-05-31] MEDS ORDERED: HEPARIN 5,000 UNIT/0.5 ML INJ SC SCH (06:00)
[2018-05-31] MEDS ORDERED: POTASSIUM CL 20 MEQ TAB PO ONE (07:19)
[2018-05-31] MEDS ORDERED: POTASSIUM CL 10 MEQ TAB PO ONE ×3 (07:45→21:00)
[2018-05-31] MEDS ORDERED: PROTOCOL POTASSIUM 1 DOSE MISC PRN (08:25)
[2018-05-31] MEDS ORDERED: ALBUTEROL 60 PUFFS/8 GM MDI IH PRN (10:29)
[2018-05-31] MEDS ORDERED: BENZONATATE 100 MG CAP PO PRN (10:29)
[2018-05-31] MEDS ORDERED: hydrOXYzine HCL 25 MG TAB PO PRN (10:32)
[2018-05-31 11:25] LABS: CREATINE KINASE < 20 IU/L (0-156)
[2018-05-31] MEDS: LEVOTHYROXINE 125 MCG TAB PO SCH (12:01)
--- NOTE | 2018-05-31 12:05 | HOSPPROG ---
Hospitalist Progress Note Assessment/Plan: 47 yo F w/ hx of metastatic parathyroid carcinoma with recent complicated course presents with anasarca. #Anasarca: Likely combo of renal failure and hypoalbuminemia. - TTE pending - Lower ext US to eval DVT - Increase lasix to 80mg IV BID, give albumin with dose tomorrow AM #SKYE with likely CKD: UA clean. No obstruction on US. Recent range from 2.9-4.1 , currently 3.2. - Renal consulted, appreciate assistance #Abnormal LFTs: Infiltrative pattern. Likely due to large hepatic met. No e/o biliary dilatation; doesn't have gallbladder - Monitor #Indeterminate troponin: Suspect demand in setting of volume overload, peaked 0.25 - TTE as above. Consult cardiology if wall motion abnormalities. Will likely need ischemic eval at some point #Metastatic parathyroid carcinoma: Mets to liver, lungs, LNs, and ovaries. - Discussed with oncology today #Right pelvic wall abscess: This was not surgically drained. S/p 3 weeks of zosyn (stopped d/t worsening liver fxn). - No signs of infection, will hold on additional abx #Hypokalemia: D/t diuresis - Replete aggressively and start on protol #Hypocalcemia: She has been severely hypercalcemic in the past d/t her cancer - Monitor, if still low in AM will replete #Normocytic anemia: Slight down-trend. Likely d/t recent surgery in setting of renal dysfunction - Monitor #CML: In remission, f/b Dr Fonseca at [facility] - Continue #Hypothyroidism - LT4 replacement I am concerned with the multitude of problems she is encountering. May need palliative care involved her in care soon. Diet - Cardiac Code - Full Ppx - SCDs noting recent hematoma complicating surgery Dispo - Remain inpatient Subjective: In quite a bit of discomfort related to swelling. Hard to get comfortable. No fevers. No chest pain. Objective: Vital Signs Temp Pulse Resp BP Pulse Ox 36.7 C 107 H 14 129/81 H 96 05/31/18 08:00 05/31/18 08:00 05/31/18 08:00 05/31/18 08:00 05/31/18 08:00 Laboratory Results 05/31/18 04:15 05/31/18 04:15 05/30/18 05/31/18 06/01/18 05:59 05:59 05:59 Intake Total 200 Output Total 800 300 Balance -600 -300 - Physical Exam Constitutional: obese, uncomfortable Eyes: PERRL, icteric sclera Ears, Nose, Mouth, Throat: moist mucous membranes Cardiovascular: systolic murmur, tachycardia, edema (anasarca) Respiratory: no respiratory distress, reduced air movement, No expiratory wheeze , No inspiratory crackles Gastrointestinal: normoactive bowel sounds, soft, non-tender abdomen, no palpable masses, distension Genitourinary: no bladder fullness, no bladder tenderness, no renal bruits Skin: no rashes or abrasions, no fluctuance, no induration Musculoskeletal: generalized weakness Neurologic: AAOx3 Psychiatric: interacting appropriately ICD10 Worksheet Patient Problems: Problems Problem Status Onset Congestive heart failure Acute Acute kidney injury (nontraumatic) Acute Hypercalcemia Acute
[2018-05-31 12:44] LABS: HEPATITIS B CORE AB TOTAL NEGATIVE (NEGATIVE); HEPATITIS B SURFACE ANTIGEN NEGATIVE (NEGATIVE); HEPATITIS C ANTIBODY TOTAL NEGATIVE (NEGATIVE)
--- NOTE | 2018-05-31 12:46 | GCON ---
[f rep st] CONSULTATION DATE OF CONSULTATION: 05/31/2018 REASON FOR CONSULTATION: Evaluation and management of elevated serum creatinine. HISTORY OF PRESENT ILLNESS: This information was gleaned from the patient and her niece who was at the bedside: Ms. Zavala is a 47-year-old female diagnosed about 20 years ago with parathyroid carcinoma and underwent resection of her thyroid and parathyroid glands on the left. She had been doing reasonably well until recently when she was seen for a possible hysterectomy and bilateral salpingo-oophorectomy for a cystic mass on her right ovary. During her preop evaluation, she was noted to be markedly hypotensive at [facility]. She was sent to the Emergency Department and admitted, apparently her calcium was 18.5 at that time. She was treated for her hypercalcemia, she ended up, several days later, having her abdominal/pelvic surgery with bilateral salpingo-oophorectomy with multiple adhesion takedowns. She did not have a hysterectomy. Patient became significantly more ill with hypotension, sepsis and acute kidney injury. It was noted that she had a deep pelvic abscess, which was not treated with surgical intervention or drainage as she was too ill at the time. She was treated with intravenous antibiotics. Ms. Zavala had acute kidney injury, she is not sure what her baseline serum creatinine was, but her serum creatinine did increase up to 4.1 at its maximum, her lowest serum creatinine, over the course of the past 2 months, has been about 2.9. Ms. Zavala was discharged from the hospital after 5 weeks on 2018. Over the course of the past couple of weeks, she has had worsening fatigue and significant lower extremity edema. She came to the Emergency Department last night with the aforementioned complaints. She has not been having fevers, chills, nausea, vomiting, chest pain. She does have some shortness of breath with cough and occasional sputum production that is clear. No hemoptysis, hematemesis, epistaxis, abdominal pain, diarrhea, constipation, melena, hematochezia, blurry vision, double vision, headache, orthopnea, paroxysmal nocturnal dyspnea, palpitations or syncope. She has Motrin 400 mg every 8 hours on her medication list, she says she has not taken any nonsteroidal anti-inflammatory drugs since she has returned from the hospital. PAST MEDICAL HISTORY: Significant for: 1. Chronic myelogenous leukemia. 2. A history of parathyroid cancer with hypercalcemia. 3. Hypertension. 4. Depression. 5. Hypothyroidism. 6. Thyroidectomy. 7. Parathyroidectomy. 8. A history of a recent rectus sheath hematoma and deep pelvic abscess. ALLERGIES: Conduction jelly. FAMILY HISTORY: Negative for renal failure. SOCIAL HISTORY: The patient is . She has 2 children. She has a son in high school and a daughter who is a sophomore at the [employer]. 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 She does not use tobacco, alcohol, intravenous or recreational drugs, and has no tattoos. REVIEW OF SYSTEMS: A complete 12-point review of systems was performed with pertinent positives and negatives as per the previous sections. MEDICATIONS: Current medications include: 1. Lasix 40 milligrams intravenous twice daily. 2. Zofran. 3. Potassium chloride. Home medicines include: 1. Ibuprofen 400 milligrams every 8 hours. 2. Synthroid 150 micrograms daily. 3. chemotherapy 400 milligrams twice daily. 4. Sodium bicarbonate. 5. ProAir. 6. Reglan. PHYSICAL EXAMINATION: VITAL SIGNS: Blood pressure is 129/81, pulse in the high 90s to low 100s, respirations 14, temperature 36.7. Urine output about 300 cc so far today. GENERAL: She is awake, alert, cooperative, ill appearing but in no acute distress. HEENT: Pupils are reactive to light. Extraocular movements are intact. Mucous membranes are moist. NECK: No lymphadenopathy or thyromegaly. She has a large scar on the left. CARDIOVASCULAR: Heart is regular. No rub. No S3. LUNGS: Decreased breath sounds in the bases bilaterally. No rhonchi or wheezes. ABDOMEN: Obese. Bowel sounds are positive. Nontender, nondistended. EXTREMITIES: Plus-three edema into the thighs. NEUROLOGIC: No asterixis. She moves all of her extremities. SKIN: She does have a light, lacy rash over her feet and ankles bilaterally. LYMPH: No palpable lymphadenopathy. MUSCULOSKELETAL: No effusions or tenderness. LABORATORY: WBC 6.4, hemoglobin 7.5, hematocrit 22, platelet count 216,000. Serum sodium is 138; potassium 2.9, down from 3 yesterday; chloride 105; CO2 20 ; BUN 21; creatinine 3.2 today, it was 3.2 yesterday. BNP 3440. Alkaline phosphatase 1726. AST 275, ALT 115. Troponin 0.248, next troponin at noon. Calcium 6.9, corrects to about 8.1. IMAGING: Ultrasound of the abdomen, done today, showed a right hepatic mass of 5 cm x 3.5 cm x 4 cm. Ultrasound of her kidney showed the right kidney to be 11.6, the left 11.9 with mild increased echogenicity. IMPRESSION: 1. Acute kidney injury. Sounds like it is due to sepsis and hypotension that has not resolved over the course of the past 6 or 7 weeks, peaked at around 4.1 , lowest was around 2.9, currently 3.2, she is not oliguric. 2. Anemia, which is likely multifactorial. We will be checking an SORAYA as well as iron studies, etc. 3. Elevated troponin. Following. 4. Hypokalemia due to diuresis. Will supplement. 5. History of metastatic parathyroid carcinoma with a large liver mass. 6. Lower extremity edema, which is significant, abdominal ultrasound did not show any obstructive process, I think it is reasonable that we consider checking a lower extremity venous duplex to make sure that we are not dealing with a hypercoagulable state and thrombosis. Thank you for allowing me to participate in the care of your patient, Karen Zavala. If there are any questions, please do not hesitate to contact us. We will be following along with you. /[id number]/MODL MTDD
[2018-05-31] MEDS: SODIUM BICARBONATE 650 MG TAB PO SCH ×2 (14:00→18:31)
[2018-05-31] MEDS: METOCLOPRAMIDE 5 MG TAB PO SCH ×4 (14:00→22:28)
--- NOTE | 2018-05-31 14:34 | ASMTCMCOM ---
CM Note CM Note Notes: Pts case discussed in tx rounds. Pt is a 47 y/o female admitted for CHF and elevated troponin. Pt will most likely d/c independent when medically stable. No therapies ordered at this time. CM available for changes. Plan: Independent Date Signed: 05/31/2018 02:32 PM Electronically Signed By:GRANT Mckenzie
--- NOTE | 2018-05-31 16:15 | PDMN ---
Medical Necessity Medical necessity: Pt changed to IP as of 05/31/2018 per and DAVEY M-[id number] (Renal failure, acute) goal stay 3 days; for ongoing tx and management of SKYE on CKD with hypokalemia, elevated troponin, fluid overload noted on CXR, anemia, elevated LFT's and anasarca; requiring renal consultation, electrolyte protocol , strict I&O, serial labs, and diuresis with close monitoring d/t kidney function. Hx of recent admission for pelvic wall abscess resulting in sepsis and metastatic parathyroid carcinoma with mets to the liver.
[2018-05-31] MEDS: SERTRALINE HCL 50 MG TAB PO SCH (20:57)
[2018-05-31] MEDS: POTASSIUM Cl (KCl) 100 ML IV SCH ×2 (22:22→23:45)
[2018-06-01 04:45] LABS: PLATELET COUNT 231 10^3/uL (150-400)
[2018-06-01] MEDS: METOCLOPRAMIDE 5 MG TAB PO SCH ×4 (06:01→20:29)
[2018-06-01] MEDS: LEVOTHYROXINE 125 MCG TAB PO SCH (06:01)
[2018-06-01] MEDS ORDERED: MAGNESIUM SULF 1 GM/DEXTROSE 100 ML IV ONE (08:05)
[2018-06-01] MEDS ORDERED: CALCIUM CARBONATE 500 MG CHEWABLE TAB PO PRN (08:11)
[2018-06-01] MEDS: SODIUM BICARBONATE 650 MG TAB PO SCH ×3 (08:20→20:29)
--- NOTE | 2018-06-01 08:26 | HOSPPROG ---
Hospitalist Progress Note Assessment/Plan: 47 yo F w/ hx of metastatic parathyroid carcinoma with recent complicated course presents with anasarca. #Anasarca: Multifactorial from renal, hepatic, possibly cardiopulmonary issues. TTE pending. Continue lasix 80 IV BID w/albumin. I/Os. #Abnormal LFTs: Mostly obstructive pattern. Unclear if all d/t hepatic met. No e /o biliary dilatation; doesn't have gallbladder. Checking MRCP. #SKYE on CKD: This actually likely represents new baseline. Sustained recent injury from hyperCa and hypotension/ATN. UA clean. No obstruction on US. Recent range from 2.9-4.1, currently 3.2. Renal following, serologies pending, appreciate assistance. #Indeterminate troponin: Suspect demand in setting of volume overload, peaked 0.25. TTE as above. May need ischemic eval pending clinical course. #Metastatic parathyroid carcinoma: Mets to liver, lungs, LNs, and ovaries. I d/ w Dr Reeder today who will see in consultation. #Right pelvic wall abscess: Too small for surgical drainage per prior reports. S /p 3 weeks of zosyn (stopped d/t worsening liver fxn). No signs of infection, will hold on additional abx. #Hypokalemia: D/t diuresis. Replete, on protocol. #Hypocalcemia: She has been severely hypercalcemic in the past d/t her cancer. Monitor for now #AGMA: D/t renal failure. Now on bicarb. #Normocytic anemia: Slight down-trend. Likely d/t recent surgery in setting of renal dysfunction. Monitor #CML: In remission, f/b Dr Fonseca at [facility]. Continue nilotinib. #Hypothyroidism: LT4 replacement #Recent rectus sheath hematoma: Per raiza, too small for surgical intervention. No e/o bleeding. I am concerned with the multitude of problems she is encountering. May need palliative care involved her in care soon. Diet - Cardiac Code - Full Ppx - SCDs noting recent hematoma complicating surgery Dispo - Remain inpatient Subjective: Tearful. Doesn't want to be in the hospital anymore. Doesn't want anymore procedures. She thinks her swelling is slightly down in her feet. Objective: Vital Signs Temp Pulse Resp BP Pulse Ox 36.6 C 103 H 18 114/58 L 95 06/01/18 08:00 06/01/18 08:00 06/01/18 08:00 06/01/18 08:00 06/01/18 08:00 Laboratory Results 06/01/18 04:30 06/01/18 04:30 05/31/18 06/01/18 06/02/18 05:59 05:59 05:59 Intake Total 200 2715 Output Total 800 2125 Balance -600 590 - Physical Exam Constitutional: no apparent distress, obese Eyes: PERRL, anicteric sclera Ears, Nose, Mouth, Throat: moist mucous membranes, hearing normal, ears appear normal, no oral mucosal ulcers Cardiovascular: regular rate and rhythym, no murmur, rub, or gallop, edema Respiratory: no respiratory distress, no rales or rhonchi, clear to auscultation Gastrointestinal: normoactive bowel sounds, soft, non-tender abdomen, no palpable masses Genitourinary: no bladder fullness, no bladder tenderness, no renal bruits Skin: no rashes or abrasions, no fluctuance, no induration, erythema (mild LLE) Musculoskeletal: full muscle strength, no muscle tenderness, normal joint ROM Neurologic: AAOx3 Psychiatric: interacting appropriately ICD10 Worksheet Patient Problems: Problems Problem Status Onset Congestive heart failure Acute Acute kidney injury (nontraumatic) Acute Hypercalcemia Acute
[2018-06-01] MEDS ORDERED: ALBUMIN 25% 100 ML IV ONE (08:30)
[2018-06-01] MEDS: POTASSIUM Cl (KCl) 50 ML IV SCH ×3 (10:09→20:29)
--- NOTE | 2018-06-01 10:09 | SOAPPROG ---
SOAP Progress Note Assessment/Plan: Assessment: SKYE, creat stable in low 3's metastatic parathyroid cancer, large liver mass, PTH 2562 hypokalemia, supps underway volume overload and peripheral edema, diuresing, await echo results proteinuria, not nephrotic Up/c about 1.2g/g creat acidosis, adjust bicarb hypomagnesemia, supps underway anemia, multifactorial UOP quite reasonable Plan: Supp K Supp Mg continue diuresis await echo, would like to see EF and if there is mets to pericardium/effusion no urgent HD needs nice discussion with Karen, all questions answered 06/01/18 10:00 Subjective: slept OK spirits good no cp, still some SOB no nausea or vomiting, appetite not great this AM denies any significant pain getting up and around in the room Objective: Vital Signs Temp Pulse Resp BP Pulse Ox 36.6 C 103 H 18 114/58 L 95 06/01/18 08:00 06/01/18 08:00 06/01/18 08:00 06/01/18 08:00 06/01/18 08:00 Laboratory Results 06/01/18 04:30 06/01/18 04:30 05/31/18 06/01/18 06/02/18 05:59 05:59 05:59 Intake Total 200 2715 Output Total 800 2125 Balance -600 590 Physical Exam - Physical Exam General Appearance: alert Neck: normal inspection, other (JVD) Respiratory: rales, No rhonchi, No wheezing Cardiac/Chest: regular rate, rhythm, edema, No friction rub Abdomen: normal bowel sounds, non-tender Skin: other (warm) Extremities: swelling Neuro/Psych: alert, normal mood/affect, oriented x 3 ICD10 Worksheet Patient Problems: Problems Problem Status Onset Congestive heart failure Acute Acute kidney injury (nontraumatic) Acute Hypercalcemia Acute
[2018-06-01] MEDS: FUROSEMIDE 100 MG/10 ML VIAL IVP SCH ×2 (11:46→17:16)
[2018-06-01] MEDS: CALCIUM CARBONATE 500 MG CHEWABLE TAB PO SCH ×2 (11:49→17:16)
--- NOTE | 2018-06-01 12:54 | SOAPPROG ---
SOHERNANDO Progress Note Assessment/Plan: Assessment: Social visit, CML under good control Plan: 06/01/18 12:53 Objective: Vital Signs Temp Pulse Resp BP Pulse Ox 97.9 F 103 H 18 102/56 L 94 06/01/18 12:00 06/01/18 12:00 06/01/18 12:00 06/01/18 12:00 06/01/18 12:00 Laboratory Results 06/01/18 04:30 06/01/18 04:30 05/31/18 06/01/18 06/02/18 05:59 05:59 05:59 Intake Total 200 2715 Output Total 800 2125 Balance -600 590 ICD10 Worksheet Patient Problems: Problems Problem Status Onset Congestive heart failure Acute Acute kidney injury (nontraumatic) Acute Hypercalcemia Acute
[2018-06-01 19:07] LABS: CREATINE KINASE < 20 IU/L (0-156)
[2018-06-01] MEDS: MELATONIN 3 MG TAB PO PRN (20:29)
[2018-06-01] MEDS: SERTRALINE HCL 50 MG TAB PO SCH (20:29)
[2018-06-02 04:35] LABS: PLATELET COUNT 212 10^3/uL (150-400)
[2018-06-02] MEDS: LEVOTHYROXINE 125 MCG TAB PO SCH (06:27)
[2018-06-02] MEDS: METOCLOPRAMIDE 5 MG TAB PO SCH ×2 (06:32→12:58)
[2018-06-02] MEDS ORDERED: SODIUM CL NASAL 45 ML BTL EACHNARE PRN (06:37)
--- NOTE | 2018-06-02 09:18 | SOAPPROG ---
SOAP Progress Note Assessment/Plan: Assessment: SKYE, creat stable in low 3's metastatic parathyroid cancer, large liver mass, PTH 2562 hypokalemia, supps underway volume overload and peripheral edema, diuresing, will change to bumex for better bioavailability in edematous gut proteinuria, not nephrotic Up/c about 1.2g/g creat acidosis, adjusted bicarb hypomagnesemia, supps underway anemia, multifactorial UOP quite reasonable Plan: Supp K Supp Mg continue diuresis await echo, will reorder, would like to see EF and if there is mets to pericardium/effusion no urgent HD needs nice discussion with Karen, niece in the room with her, also sister was on phone during our conversation, all questions answered 06/01/18 10:00 06/02/18 09:20 Subjective: tired today not getting up much, encouraged her to walk in the halls with assistance appetite poor today having MRI later didn't sleep well last night frustrated about her swelling no significant pain Objective: Vital Signs Temp Pulse Resp BP Pulse Ox 36.4 C 104 H 18 116/59 L 96 06/02/18 07:37 06/02/18 07:37 06/02/18 07:37 06/02/18 07:37 06/02/18 07:37 Laboratory Results 06/02/18 04:20 06/02/18 04:20 06/01/18 06/02/18 06/03/18 05:59 05:59 05:59 Intake Total 2715 1205 Output Total 2125 1300 200 Balance 590 -95 -200 Physical Exam - Physical Exam General Appearance: alert, other (ill appearing) Neck: normal inspection Respiratory: rales, No wheezing Cardiac/Chest: regular rate, rhythm, edema, systolic murmur Abdomen: normal bowel sounds, non-tender Skin: other (lacy rash lower extremity bilaterally) Extremities: swelling Neuro/Psych: alert, oriented x 3 ICD10 Worksheet Patient Problems: Problems Problem Status Onset Congestive heart failure Acute Acute kidney injury (nontraumatic) Acute Hypercalcemia Acute
[2018-06-02] MEDS: CALCIUM CARBONATE 500 MG CHEWABLE TAB PO SCH ×3 (09:52→18:09)
[2018-06-02] MEDS: MAGNESIUM OXIDE 400 MG TAB PO SCH (09:52)
[2018-06-02] MEDS: FUROSEMIDE 100 MG/10 ML VIAL IVP SCH (10:02)
--- NOTE | 2018-06-02 10:21 | ECHO ---
[email or web address] [address] [address] Main: [phone] Echocardiography Examination Transthoracic Name: GUCCI XIONG MR#: [id number] Study Date: 05/31/2018 Study Time: 02:45 PM Date of : 1970 Age: 47 year(s) Height: 165.1 cm (65 in.) Weight: 125.65 kg (277 lb.) BSA: 2.27 m2 Gender: Female Examination: Echo Contrast: Image Quality: Adequate Rhythm: Heart Rate: BP: / Indication: chf Procedure Staff Referring Physician: [employer] Operator: Jacquie Singh RDCS Reading Physician: Marko Cee MD Requesting Provider: Indication: chf Measurements Chambers AV/MV Label Value Normal Value Label Value Normal Value IVSd, 2D 1.2 cm (0.6cm - 1.1cm) AV PGmax 15 mmHg LVDd, 2D 5.1 cm (3.9cm - 5.3cm) AV PGmean 10 mmHg LVDs, 2D 3.1 cm (2.1cm - 4cm) AV Vmax 1.94 m/s LVEF, 2D 70 % (54% - 74%) SHEBA D (continuity eq. 1.8 cm2 LVEF, BP 66 % (55% - 70%) VTI) LVOT PGmean 2 mmHg MV A Vmax 1.2 m/s LVOT Vmean 0.71 m/s MV DT 201 ms LVOTd 1.9 cm (1.8cm - 2cm) MV E' lateral 0.09 m/s LVPWd, 2D 1.1 cm MV E' mean 0.1 m/s RVDd, 2D 3 cm (1.9cm - 3.8cm) MV E' septal 0.12 m/s LA Volume, BP 55 ml (22ml - 52ml) MV E Vmax 1.28 m/s LADs, 2D 3.9 cm (2.7cm - 3.8cm) MV E/A 1.07 LAESV index, BP 24.2 ml/m2 MV E/E' lateral 14.4 Additional Vessels MV E/E' mean 12.19 Label Value Normal Value MV E/E' septal 10.4 (0.5 - 1.7) AoAsc 2.8 cm MV PHT 0.06 s AoRoot, 2D 2.7 cm (1.4cm - 2.6cm) MV PHT 55 ms IVC 1.6 cm (1.2cm - 2.3cm) MVA PHT 4 cm2 TV/PV Label Value Normal Value Patient: GUCCI XIONG Study Date: 05/31/2018 Page 1 of 2 02:45 PM RA Pressure 5 mmHg RVSP 54 mmHg TR Pmax 49 mmHg TR Vmax 3.49 m/s Conclusions Overall Conclusions: no pericardial effusion. Preserved left ventricular systolic function. Limited study. Right ventricular systolic pressure is estimated at 54 mm of mercury. Findings Technically difficult due to body habitus. Patient says she is unable to lay on left side. Left Ventricle: Left ventricle is normal in size. Normal global systolic left ventricular function. The ejection fraction, measured by Simpsons method, is 66 %. The LV wall thickness is at the upper limits of normal. There are no regional wall motion abnormalities. Cannot determine LAP and Diastolic Dysfunction Grade. Right Ventricle: Normal size right ventricle. Right ventricular systolic function is normal. Left Atrium: The left atrium is normal in size. Aortic Valve: Aortic leaflets are structurally normal. No significant aortic valve regurgitation. There is no aortic stenosis. Tricuspid Valve: Tricuspid valve leaflets are structurally normal. Mild tricuspid regurgitation. No tricuspid valve stenosis. Right Ventricular systolic pressure is measured at 54 mmHg. Pulmonary artery pressure moderately increased. Pulmonic Valve: Pulmonic valve not well visualized. Aorta: The aortic root size in 2D measures 2.7 cm. The ascending aorta measures 2.8 cm. Aorta Measurements AoRoot, 2D is 2.7 cm. IVC: The inferior vena cava is normal in size. Pericardium: There is a pleural effusion present. Exam Details Procedure Ordered: Echo Procedure Status: Routine study Image Quality: Adequate Facility Location: Cardiac Echo 1 (No Signature Object) Patient: GUCCI XIONG Study Date: 05/31/2018 Page 2 of 2 02:45 PM [id number]
[2018-06-02] MEDS ORDERED: POTASSIUM Cl (KCl) 50 ML IV SCH (10:45)
[2018-06-02] MEDS ORDERED: POTASSIUM CL 20 MEQ/15 ML UDCUP PO ONE (11:30)
[2018-06-02] MEDS ORDERED: POTASSIUM CL 10 MEQ TAB PO ONE (12:00)
--- NOTE | 2018-06-02 14:51 | ASMTCMCOM ---
CM Note CM Note Notes: Spoke with pt and her friend in the room. Pt lives with and has a 16 year old son in the home. Pt very somnolent at time of interview with case management and requested some support at home post discharge. CM left message for [facility] on [employer] to contact pt and provided a list of private duty agencies for unskilled support. CM also provided application for [facility] since pt has a child in the home. Pt and friend report she is very unsteady on her feet due to anasarca and are hoping for C PT/OT upon discharge. Order placed for PT/OT to evaluate here. D/C Plan: TBD possibly [facility]HC pending evals Date Signed: 06/02/2018 02:51 PM Electronically Signed By:Cece Glez
--- NOTE | 2018-06-02 15:00 | HOSPPROG ---
Hospitalist Progress Note Assessment/Plan: 47 yo F w/ hx of metastatic parathyroid carcinoma with recent complicated course presents with anasarca. #Anasarca: Multifactorial from renal, hepatic processes and pHTN. Switched to bumex 2mg BID today. #Obstructive LFTs: Bili rising but other markers better. MRCP unable to eval biliary system today. Unclear if all d/t large hepatic met. Monitor LFTs. #SKYE on CKD: Likely at new baseline. Sustained recent injury from hyperCa and hypotension/ATN. UA clean. No obstruction on US. Recent range from 2.9-4.1, currently low 3s. Renal following, serologies pending, appreciate assistance. #Metastatic parathyroid carcinoma: Mets to liver, lungs, LNs, and ovaries. Oncology consulted. I placed call to her oncologist (Jorge Alberto Lassiter at [facility]). He is out of town but spoke with his nurse. They were planning on seeing Monday 06/05. I am concerned with multiple organ system dysfunction. May be reasonable to broach palliative care/hospice discussions in near future. #Pulmonary hypertension: Due to nae, fluid overload. She is compliant with CPAP. Diuresing as above. #Indeterminate troponin: Demand in setting of volume overload, peaked 0.25. TTE without WMA. May need ischemic eval pending clinical course. #Right pelvic wall abscess: Too small for surgical drainage per prior reports. S /p 3 weeks of zosyn (stopped d/t worsening liver fxn). No signs of infection, will hold on additional abx. #Hypokalemia: D/t diuresis. Replete, on protocol. #Hypocalcemia: This is interesting given her cancer. She has been severely hypercalcemic in the past. Monitor on telemetry. #AGMA: D/t renal failure. Now on bicarb. #Normocytic anemia: Slight down-trend. Likely d/t recent surgery in setting of renal dysfunction. Renal has ordered EPO. #CML: In remission, f/b Dr Fonseca at [facility]. Continue nilotinib. #Subclinical hypothyroidism: Cont LT4 replacement #Recent rectus sheath hematoma: Per raiza, too small for surgical intervention. No e/o bleeding. Diet - Cardiac Code - Full Ppx - SQH Dispo - Remain inpatient Subjective: Very sleepy. Some slight improvement in mobility after diuresis. She does get winded when she walks but no shortness of breath at rest. Objective: Vital Signs Temp Pulse Resp BP Pulse Ox 36.4 C 105 H 18 118/76 97 06/02/18 07:37 06/02/18 11:45 06/02/18 11:45 06/02/18 11:45 06/02/18 11:45 Laboratory Results 06/02/18 13:08 06/02/18 04:20 06/01/18 06/02/18 06/03/18 05:59 05:59 05:59 Intake Total 2715 1205 Output Total 2125 1300 200 Balance 590 -95 -200 - Physical Exam Constitutional: no apparent distress, obese Eyes: PERRL, icteric sclera Ears, Nose, Mouth, Throat: moist mucous membranes, hearing normal, ears appear normal, no oral mucosal ulcers Cardiovascular: no murmur, rub, or gallop, tachycardia, edema (anasarca) Respiratory: no respiratory distress, reduced air movement (bases), No expiratory wheeze, No inspiratory crackles Gastrointestinal: normoactive bowel sounds, soft, non-tender abdomen, no palpable masses Genitourinary: no bladder fullness, no bladder tenderness, no renal bruits Skin: no rashes or abrasions, no fluctuance, no induration Musculoskeletal: generalized weakness Neurologic: AAOx3 Psychiatric: interacting appropriately ICD10 Worksheet Patient Problems: Problems Problem Status Onset Congestive heart failure Acute Acute kidney injury (nontraumatic) Acute Hypercalcemia Acute
--- NOTE | 2018-06-02 16:15 | ASMTCMCOM ---
CM Note CM Note Notes: ADDENDUM: Pt current with [facility]. updates sent to them. Date Signed: 06/02/2018 04:15 PM Electronically Signed By:Cece Glez
--- NOTE | 2018-06-02 19:13 | GCON ---
[f rep st] CONSULTATION MEDICAL ONCOLOGY CONSULTATION The patient is a 47-year-old female who has a past history of CML and in addition, a history of parathyroid cancer. Her CML has been under good control on Tasigna. Her parathyroid cancer unfortunately has been an ongoing issue, particularly recently. To review, this was diagnosed in September 2003, and was treated surgically. She had a couple of subsequent left neck dissections in 2004 and 2010. She eventually underwent radiation therapy to her left neck. She has developed metastatic disease to the lung and liver. She has had hepatic resection 2015 and 2016, underwent yttrium-90 therapy in December 2017 and February 2018. She recently developed very severe hypercalcemia and imaging studies showed significant adnexal masses. My understanding is she was seen at the [facility] and underwent surgical resection of the adnexal masses which were apparently parathyroid cancers which had metastasized. With that treatment, her calcium improved. However, her hospital stay was complicated by acute renal failure, related probably to the hypercalcemia with a creatinine of around 3.5 or so. She was also during the hospital stay, noted to have elevated liver function tests with an alkaline phosphatase in the 500 range and bilirubin in the 2 range. This was felt to be related to TPN and possibly antibiotics. Postsurgically, she had issues with an abscess in her pelvis, which was treated with antibiotics and had a hematoma in her rectus muscle. She was discharged after a 5-1/2 week hospital stay, but was readmitted to [facility] on May 31 with essentially severe edema and anasarca. She has been seen with renal consultation and has been placed on diuretics. Issues have included persistent renal insufficiency and significantly elevated liver function tests with bilirubin currently in the 6 or so range and an alkaline phosphatase of 160. A CT scan done a week ago at [facility] showed a lobulated liver surface consistent with cirrhosis. There were known right hepatic lobe metastasis noted. There were 2 masses in the 3-2 cm range. There was no evidence of biliary obstruction. A recent ultrasound at [facility] also did not show biliary obstruction. An MRI done today was a poor quality study and did not add much to her situation. Currently, she is somewhat depressed. She feels her edema is getting somewhat better. Creatinine has been stable in the 3.4 or so range. PAST MEDICAL HISTORY: Significant for CML, parathyroid carcinoma, hypertension , hypothyroidism, and depression. PAST SURGICAL HISTORY: Include thyroidectomy, left neck dissection, parathyroidectomy, diagnostic laparoscopy converted to exploratory lap, BSO, and right ureterolysis. FAMILY HISTORY: Noncontributory. PHYSICAL EXAMINATION: GENERAL: Today, she is an alert female. She has slight icterus noted. VITAL SIGNS: Blood pressure is 118/76, pulse 105, temp 97.5. LUNGS: Clear. CARDIAC: Unremarkable. ABDOMEN: Obese, but benign. EXTREMITIES: Show significant edema NEUROLOGIC: non focal LABORATORY DATA: Sodium 136, potassium 3.4, bilirubin 6.4, AST 216, ALT 104, alkaline phosphatase 1632. White count is 4.75, hemoglobin 7.6, hematocrit 22.9 , platelets are 212,000. IMPRESSION: A patient whose major problem at this time is parathyroid carcinoma. Presumably, the significant hyperparathyroidism and hypercalcemia were related to metastatic disease. This seems to have improved since her surgical resection and in fact, she is now a bit hypocalcemic. I should note that her last PTH level was 2562. Biggest issues are her renal insufficiency, which is nonoliguric, presumably related to ATN and possibly medications, as well as her significantly elevated liver function tests. At the present time, it does not appear that the disease in her liver is enough to account for the elevated liver function tests as it seems to be moderate volume isolated to the right lobe. It is possible that this is multifactorial, related to TPN,, antibiotics, and there is a suggestion of underlying cirrhosis, which could also be playing a role. Tasigna on occasion has been associated with elevated liver function tests, but she has been on it for many years without problems. It is possible GI consultation might be helpful. I will discuss with and our service will follow with you. /[id number]/MODL MTDD
[2018-06-02] MEDS ORDERED: EPOETIN ALFA 10,000 UNIT/ML VIAL SC ONE (20:00)
[2018-06-02] MEDS: SERTRALINE HCL 50 MG TAB PO SCH (21:08)
[2018-06-02] MEDS: POTASSIUM Cl (KCl) 50 ML IV SCH ×3 (21:08→23:14)
[2018-06-02] MEDS: SODIUM BICARBONATE 650 MG TAB PO SCH (21:09)
[2018-06-02] MEDS: BUMETANIDE 2 MG TAB PO SCH (21:09)
[2018-06-02] MEDS: HEPARIN 5,000 UNIT/0.5 ML INJ SC SCH (21:19)
[2018-06-03] MEDS: HEPARIN 5,000 UNIT/0.5 ML INJ SC SCH ×3 (05:22→23:15)
[2018-06-03] MEDS: LEVOTHYROXINE 125 MCG TAB PO SCH (05:23)
[2018-06-03 05:49] LABS: INR 1.52 (0.83-1.16); PROTIME(PATIENT) 17.6 SEC (12.0-15.0)
[2018-06-03 05:57] LABS: PLATELET COUNT 193 10^3/uL (150-400)
[2018-06-03] MEDS ORDERED: POTASSIUM CL 10 MEQ TAB PO ONE ×2 (08:04→19:07)
[2018-06-03] MEDS ORDERED: ALTEPLASE 2 MG VIAL IVP PRN (08:08)
[2018-06-03] MEDS: CALCIUM CARBONATE 500 MG CHEWABLE TAB PO SCH ×3 (09:08→17:45)
[2018-06-03] MEDS: BUMETANIDE 2 MG TAB PO SCH ×2 (09:29→19:50)
[2018-06-03] MEDS: MAGNESIUM OXIDE 400 MG TAB PO SCH (09:29)
[2018-06-03] MEDS: POTASSIUM Cl (KCl) 50 ML IV SCH ×4 (11:59→15:20)
--- NOTE | 2018-06-03 13:05 | HOSPPROG ---
Hospitalist Progress Note Assessment/Plan: 47 yo F w/ hx of metastatic parathyroid carcinoma with recent complicated course presents with anasarca. #Anasarca: Multifactorial from renal, hepatic processes and pHTN. Continue bumex 2mg BID, monitor I/Os. #Obstructive LFTs: Now improving. MRCP unable to eval biliary system today. Suspect liver injury related to zosyn +/- recent TPN. Monitor. #SKYE on CKD: Likely at new baseline. Sustained recent injury from hyperCa and hypotension/ATN. UA clean. No obstruction on US. Recent range from 2.9-4.1, currently low 3s. Renal following, serologies pending, appreciate assistance. #Metastatic parathyroid carcinoma: Mets to liver, lungs, LNs, and ovaries. Oncology consulted. I placed call to her oncologist (Jorge Alberto Lassiter at [facility]). He is out of town but spoke with his nurse. They were planning on seeing Monday 06/05. Discussed palliative care with pt/family 06/03 - they seem interested - will place consult. #Pulmonary hypertension: Due to nae, fluid overload. She is compliant with CPAP. Diuresing as above. #Indeterminate troponin: Demand in setting of volume overload, peaked 0.25. TTE without WMA. Hold on ischemic evaluation. #Right pelvic wall abscess: Too small for surgical drainage per prior reports. S /p 3 weeks of zosyn (stopped d/t worsening liver fxn). No signs of infection, will hold on additional abx. Recent outpt blood cultures negative. #Hypokalemia: D/t diuresis. Replete, on protocol. #Hypocalcemia: This is interesting given her cancer. She has been severely hypercalcemic in the past. Monitor on telemetry. #AGMA: D/t renal failure. Now on bicarb. #Normocytic anemia: Slight down-trend. Likely d/t recent surgery in setting of renal dysfunction. Renal has ordered EPO. #CML: In remission, f/b Dr Fonseca at [facility]. Continue nilotinib. #Subclinical hypothyroidism: Cont LT4 replacement #Recent rectus sheath hematoma: Per raiza, too small for surgical intervention. No e/o bleeding. #Deconditioning: D/t prolonged hospital course. PT/OT consulted. Diet - Cardiac Code - Full Ppx - SQH Dispo - Remain inpatient. ADD uncertain. May be reasonable to dc in next 2 days , possibly Tuesday to make appt with her oncologist at [facility]. Subjective: Best she's felt since being here today. Walked halls. Up in chair eating. Long discussion with numerous family members re: concern for going home. Objective: Vital Signs Temp Pulse Resp BP Pulse Ox 36.7 C 102 H 13 118/78 96 06/03/18 12:00 06/03/18 12:00 06/03/18 12:00 06/03/18 12:00 06/03/18 12:00 Laboratory Results 06/03/18 06:30 06/03/18 05:20 06/02/18 06/03/18 06/04/18 05:59 05:59 05:59 Intake Total 1205 1230 Output Total 1300 1100 425 Balance -95 130 -425 PT 17.6 SEC (12.0-15.0) H 06/03/18 05:20 INR 1.52 (0.83-1.16) H 06/03/18 05:20 - Physical Exam Constitutional: no apparent distress, chronically ill appearing Eyes: PERRL, icteric sclera Ears, Nose, Mouth, Throat: moist mucous membranes Cardiovascular: no murmur, rub, or gallop, tachycardia, edema Respiratory: no respiratory distress, no rales or rhonchi, reduced air movement (bases) Gastrointestinal: normoactive bowel sounds, soft, non-tender abdomen, no palpable masses Genitourinary: no bladder fullness, no bladder tenderness, no renal bruits Skin: no rashes or abrasions, no fluctuance, no induration Musculoskeletal: generalized weakness Neurologic: AAOx3 Psychiatric: interacting appropriately ICD10 Worksheet Patient Problems: Problems Problem Status Onset Congestive heart failure Acute Acute kidney injury (nontraumatic) Acute Hypercalcemia Acute
--- NOTE | 2018-06-03 14:02 | SOAPPROG ---
SOAP Progress Note Assessment/Plan: Assessment: SKYE, creat stable in low 3's metastatic parathyroid cancer, large liver mass, PTH 2562 hypokalemia, supps underway volume overload and peripheral edema, diuresing, will change to bumex for better bioavailability in edematous gut proteinuria, not nephrotic Up/c about 1.2g/g creat acidosis, adjusted bicarb hypomagnesemia, supps underway anemia, multifactorial UOP remains quite reasonable Plan: Supp K Supp Mg continue diuresis await echo, will reorder, would like to see EF and if there is mets to pericardium/effusion no urgent HD needs nice discussion with Karen, niece in the room with her, also sister was on phone during our conversation, all questions answered 06/01/18 10:00 06/02/18 09:20 06/03/18 14:00 Subjective: up to chair family at bedside ate lunch OK tired, sleeping OK no cp or vomiting some SOB and occasional nausea Objective: Vital Signs Temp Pulse Resp BP Pulse Ox 36.7 C 102 H 13 118/78 96 06/03/18 12:00 06/03/18 12:00 06/03/18 12:00 06/03/18 12:00 06/03/18 12:00 Laboratory Results 06/03/18 06:30 06/03/18 05:20 06/02/18 06/03/18 06/04/18 05:59 05:59 05:59 Intake Total 1205 1230 Output Total 1300 1100 425 Balance -95 130 -425 PT 17.6 SEC (12.0-15.0) H 06/03/18 05:20 INR 1.52 (0.83-1.16) H 06/03/18 05:20 Physical Exam - Physical Exam General Appearance: alert Neck: normal inspection Respiratory: No rhonchi, No wheezing Cardiac/Chest: regular rate, rhythm, edema, No friction rub Abdomen: normal bowel sounds, non-tender, soft Extremities: swelling Neuro/Psych: alert, oriented x 3 ICD10 Worksheet Patient Problems: Problems Problem Status Onset Congestive heart failure Acute Acute kidney injury (nontraumatic) Acute Hypercalcemia Acute
[2018-06-03] MEDS: ACETAMINOPHEN 325 MG TAB PO PRN (19:49)
[2018-06-03] MEDS: SODIUM BICARBONATE 650 MG TAB PO SCH (19:49)
[2018-06-03] MEDS: SERTRALINE HCL 50 MG TAB PO SCH (19:49)
[2018-06-03] MEDS: POTASSIUM Cl (KCl) 10 MEQ in NS 100 ML IV SCH ×3 (21:10→23:07)
[2018-06-03 21:36] LABS: PLATELET COUNT 247 10^3/uL (150-400)
[2018-06-04] MEDS: POTASSIUM Cl (KCl) 10 MEQ in NS 100 ML IV SCH (00:15)
[2018-06-04] MEDS: BUMETANIDE 2 MG TAB PO SCH (00:21)
[2018-06-04] MEDS: SERTRALINE HCL 50 MG TAB PO SCH (00:22)
[2018-06-04] MEDS: SODIUM BICARBONATE 650 MG TAB PO SCH (00:22)
[2018-06-04] MEDS: HEPARIN 5,000 UNIT/0.5 ML INJ SC SCH ×2 (04:42→15:06)
[2018-06-04] MEDS: LEVOTHYROXINE 125 MCG TAB PO SCH (04:42)
[2018-06-04 04:54] LABS: PLATELET COUNT 246 10^3/uL (150-400)
--- NOTE | 2018-06-04 08:57 | HOSPPROG ---
Hospitalist Progress Note Assessment/Plan: 47 yo F w/ hx of metastatic parathyroid carcinoma with recent complicated course presents with anasarca. #Syncopal episode: Suspect orthostatic vs severe exhaustion. Tele quiet. Non- focal neuro exam. - Offered CT head but patient declined. Will back off diuresis #Anasarca: Multifactorial from renal, hepatic processes and pHTN. Good UOP. Weight ? up (not sure if accurate) - Decrease bumex 2mg from BID to QD, follow I/Os #Obstructive LFTs: Now improving. MRCP unable to eval biliary system today. Suspect liver injury related to zosyn +/- recent TPN - Added on LFTs, if continuing to down-trend will space out monitoring #SKYE on CKD: Likely new baseline. Recent injury from hyperCa and hypotension/ ATN. - Renal following, appreciate assistance. #Metastatic parathyroid carcinoma: Mets to liver, lungs, LNs, and ovaries. Onc consulted - Discussed palliative care with pt/family 06/03 - they seem interested - consult placed for outpt #Pulmonary hypertension: Due to nae, fluid overload. - She is compliant with CPAP. Diuresing as above. #Indeterminate troponin: Demand in setting of volume overload, peaked 0.25. TTE without WMA. - Hold on ischemic evaluation. #Right pelvic wall abscess: Too small for surgical drainage. S/p 3 weeks of zosyn (stopped d/t worsening liver fxn). No signs of infection, recent outpt blood cultures negative. - Hold on additional abx. #Hypokalemia: D/t diuresis. - Replete, on protocol. #Hypocalcemia: This is interesting given her cancer. She has been severely hypercalcemic in the past. - Monitor on telemetry. #AGMA: D/t renal failure. - Now on bicarb. #Normocytic anemia: Slight down-trend. Likely d/t recent surgery in setting of renal dysfunction. - Renal has ordered EPO. #CML: In remission, f/b Dr Fonseca at [facility]. - Continue nilotinib. #Subclinical hypothyroidism - Cont LT4 replacement #Recent rectus sheath hematoma: Per raiza, too small for surgical intervention. No e/o bleeding. #Deconditioning: D/t prolonged hospital course. - PT/OT consulted. Diet - Cardiac Code - Full Ppx - SQH Dispo - Remain inpatient. ADD uncertain. May be reasonable to dc tomorrow (if clinically stable)in order to make appt with her oncologist at [facility] on 06/05. I am concerned about her functional status - she is very weak. Subjective: Episode of syncope around 8pm. Sitting on side of bed when this occurred. No palpitations, cp, dyspnea, diaphoresis, dizziness, lightheadedness. No seizure or stiven/bladder incontinence. Reviewed telemetry, no arrythmias. Currently feeling much better after getting good night sleep. Still very weak. Objective: Vital Signs Temp Pulse Resp BP Pulse Ox 36.6 C 114 H 20 133/75 H 96 06/04/18 07:57 06/04/18 07:57 06/04/18 07:57 06/04/18 07:57 06/04/18 07:57 Laboratory Results 06/04/18 04:50 06/04/18 04:50 06/03/18 06/04/18 06/05/18 05:59 05:59 05:59 Intake Total 1230 350 Output Total 1100 1475 Balance 130 -1125 PT 17.6 SEC (12.0-15.0) H 06/03/18 05:20 INR 1.52 (0.83-1.16) H 06/03/18 05:20 - Physical Exam Constitutional: no apparent distress Eyes: PERRL, icteric sclera Ears, Nose, Mouth, Throat: moist mucous membranes Cardiovascular: systolic murmur, tachycardia, edema Respiratory: no respiratory distress, reduced air movement (bases), No expiratory wheeze, No inspiratory crackles Gastrointestinal: normoactive bowel sounds, soft, non-tender abdomen, no palpable masses Genitourinary: no bladder fullness, no bladder tenderness, no renal bruits Skin: no rashes or abrasions, no fluctuance, no induration Musculoskeletal: generalized weakness Neurologic: AAOx3, sensation intact bilaterally, CN II-XII Intact, No pronator drift Psychiatric: interacting appropriately, flat affect ICD10 Worksheet Patient Problems: Problems Problem Status Onset Congestive heart failure Acute Acute kidney injury (nontraumatic) Acute Hypercalcemia Acute
[2018-06-04] MEDS ORDERED: BUMETANIDE 2 MG TAB PO SCH (09:00)
[2018-06-04] MEDS: CALCIUM CARBONATE 500 MG CHEWABLE TAB PO SCH ×3 (09:52→18:48)
[2018-06-04] MEDS: MAGNESIUM OXIDE 400 MG TAB PO SCH (09:52)
[2018-06-04] MEDS ORDERED: POTASSIUM CL 10 MEQ TAB PO ONE ×2 (10:17→19:33)
[2018-06-04] MEDS ORDERED: SERTRALINE HCL 50 MG TAB PO SCH (12:34)
--- NOTE | 2018-06-04 13:18 | SOAPPROG ---
SOAP Progress Note Assessment/Plan: Assessment: SKYE, creat remains stable in low 3's metastatic parathyroid cancer, large liver mass, PTH 2562 hypokalemia, supps underway volume overload and peripheral edema, diuresing, will change to bumex for better bioavailability in edematous gut, will give some lasix and albumin as well, as needed proteinuria, not nephrotic Up/c about 1.2g/g creat acidosis, adjusted bicarb hypomagnesemia, supps underway anemia, multifactorial UOP remains quite reasonable Plan: Supp K Supp Mg continue diuresis echo results reviewed no urgent HD needs, talked about dialysis as a means of volume removal, having about 2L UOP daily which is probably in the range we would be able to remove on dialysis nice discussion with Karen, family in the room with her, all questions answered Has an appt with oncology at [facility] tomorrow, I've suggested that they have a phone conference with Dr. Lassiter so the can move forward with a plan. 06/01/18 10:00 06/02/18 09:20 06/03/18 14:00 06/04/18 13:10 Subjective: frustrated tired SOB, no nausea or vomiting seems worn out emotionally appetite seems OK Objective: Vital Signs Temp Pulse Resp BP Pulse Ox 36.6 C 105 H 18 121/65 H 94 06/04/18 11:25 06/04/18 11:25 06/04/18 11:25 06/04/18 11:25 06/04/18 11:25 Laboratory Results 06/04/18 04:50 06/04/18 04:50 06/03/18 06/04/18 06/05/18 05:59 05:59 05:59 Intake Total 1230 350 Output Total 1100 1475 200 Balance 130 -1125 -200 PT 17.6 SEC (12.0-15.0) H 06/03/18 05:20 INR 1.52 (0.83-1.16) H 06/03/18 05:20 Physical Exam - Physical Exam General Appearance: alert, obese Neck: normal inspection Respiratory: rales, No rhonchi, No wheezing Cardiac/Chest: regular rate, rhythm, edema, No friction rub Abdomen: normal bowel sounds, non-tender Extremities: swelling Neuro/Psych: alert, oriented x 3 ICD10 Worksheet Patient Problems: Problems Problem Status Onset Congestive heart failure Acute Acute kidney injury (nontraumatic) Acute Hypercalcemia Acute
[2018-06-04] MEDS ORDERED: ALBUMIN 25% 200 ML IV ONE (13:30)
[2018-06-04] MEDS ORDERED: FUROSEMIDE 100 MG/10 ML VIAL IVP ONE (14:00)
[2018-06-04] MEDS: ACETAMINOPHEN 325 MG TAB PO PRN (15:12)
--- NOTE | 2018-06-04 15:52 | SOAPPROG ---
SOAP Progress Note Assessment/Plan: Assessment: 1. Metastatic hyperparathyroid carcinoma 2. Transaminitis/hyperbilirubinemia 3. Ansarca 4. Chronic renal insufficiency 5. CML Plan: Multiorgan dysfunction. Unclear how much/if any is reversible. Will try to connect with her oncologist at [facility] tomorrow. Agree with palliative care consult. 06/04/18 15:51 06/04/18 15:52 06/04/18 16:03 Subjective: flat affect, no complaints Objective: Vital Signs Temp Pulse Resp BP Pulse Ox 36.8 C 110 H 27 H 148/78 H 95 06/04/18 15:21 06/04/18 15:21 06/04/18 15:21 06/04/18 15:21 06/04/18 15:21 Laboratory Results 06/04/18 04:50 06/04/18 04:50 06/03/18 06/04/18 06/05/18 05:59 05:59 05:59 Intake Total 1230 350 425 Output Total 1100 1475 950 Balance 130 -1125 -525 PT 17.6 SEC (12.0-15.0) H 06/03/18 05:20 INR 1.52 (0.83-1.16) H 06/03/18 05:20 Physical Exam - Physical Exam General Appearance: no apparent distress, other (flat affect) Abdomen: other (anasarca) ICD10 Worksheet Patient Problems: Problems Problem Status Onset Congestive heart failure Acute Acute kidney injury (nontraumatic) Acute Hypercalcemia Acute
--- NOTE | 2018-06-04 16:14 | ASMTCMCOM ---
CM Note CM Note Notes: A "There With Care" application has been started for the patient. CM unable to assist with finsihing it today due to medical reasons. Patient's nurse states follow up tomorrow will be better. CM will follow. Date Signed: 06/04/2018 04:14 PM Electronically Signed By:Maribel Hankins LCSW
[2018-06-05] MEDS: HEPARIN 5,000 UNIT/0.5 ML INJ SC SCH ×4 (00:30→21:24)
[2018-06-05] MEDS: SERTRALINE HCL 50 MG TAB PO SCH ×2 (00:31→21:20)
[2018-06-05] MEDS: SODIUM BICARBONATE 650 MG TAB PO SCH ×2 (00:31→21:24)
[2018-06-05 03:25] LABS: PLATELET COUNT 256 10^3/uL (150-400)
[2018-06-05] MEDS: LEVOTHYROXINE 125 MCG TAB PO SCH (08:28)
[2018-06-05] MEDS: CALCIUM CARBONATE 500 MG CHEWABLE TAB PO SCH ×3 (08:33→18:12)
[2018-06-05] MEDS: MAGNESIUM OXIDE 400 MG TAB PO SCH (09:54)
[2018-06-05] MEDS: POTASSIUM CL 10 MEQ TAB PO ONE ×2 (09:55→16:27)
--- NOTE | 2018-06-05 10:15 | CPEKG ---
Test Reason : OPEN Blood Pressure : / mmHG Vent. Rate : 106 BPM Atrial Rate : 107 BPM P-R Int : 114 ms QRS Dur : 090 ms QT Int : 370 ms P-R-T Axes : 048 041 007 degrees QTc Int : 492 ms Sinus tachycardia Low voltage, precordial leads Borderline T abnormalities, anterior leads Borderline prolonged QT interval Confirmed by Pelon Barrientos ([id number]) on 06/05/2018 10:15:13 AM Referred By: Riky Cheng Confirmed By:Pelon Barrientos
[2018-06-05] MEDS ORDERED: ALBUMIN 25% 100 ML IV ONE (10:22)
[2018-06-05] MEDS ORDERED: FUROSEMIDE 100 MG/10 ML VIAL IVP ONE (10:22)
--- NOTE | 2018-06-05 10:23 | HOSPPROG ---
Hospitalist Progress Note Assessment/Plan: 47 yo F w/ hx of metastatic parathyroid carcinoma with recent complicated course presents with anasarca. #Anasarca: Multifactorial from renal, hepatic processes and pHTN. Good UOP. Weight improving. - IV lasix 40mg + albumin x1, possibly switch back to PO bumex soon #Obstructive LFTs: Fluctuating. No e/o biliary dilation, US w/o thrombus. ? r/t zosyn and tpn. - GI consulted. Monitor #SKYE on CKD: Likely new baseline low 3s. Recent injury from hyperCa and hypotension/ATN. - Renal following, appreciate assistance #Metastatic parathyroid carcinoma: Mets to liver, lungs, LNs, and ovaries. - D/w her primary oncologist Dr Lassiter today. He would like to try her on multi-kinase inhibitor (lenvatinib or sorafenib) once out of hospital - D/w palliative care, will see while in hospital #Hypokalemia, hypomag: D/t diuresis - Ok to replete w/IV K (she has picc) #Syncopal episode: Tele quiet. Non-focal neuro exam. No further episodes. #Pulmonary hypertension: Due to nae, fluid overload. - She is compliant with CPAP. Diuresing as above. #Indeterminate troponin: Demand in setting of volume overload, peaked 0.25. TTE without WMA. - Hold on ischemic evaluation. #Right pelvic wall abscess: Too small for surgical drainage. S/p 3 weeks of zosyn (stopped d/t worsening liver fxn). No signs of infection, recent outpt blood cultures negative. - Hold on additional abx. #Hypocalcemia: This is interesting given her cancer. She has been severely hypercalcemic in the past. - Monitor on telemetry. #AGMA: D/t renal failure. - Now on bicarb and improved #Normocytic anemia: Slight down-trend. Likely d/t recent surgery in setting of renal dysfunction. - Renal has ordered EPO. #CML: In remission, f/b Dr Fonseca at [facility]. - Continue nilotinib. #Subclinical hypothyroidism - Cont LT4 replacement #Recent rectus sheath hematoma: Per corhio, too small for surgical intervention. No e/o bleeding. #Deconditioning: D/t prolonged hospital course. - PT/OT consulted. #Sinus tachycardia: Persistent since last hospitalization. Remains in 100s. Diet - Cardiac Code - Full Ppx - SQH Dispo - Remain inpatient. ADD uncertain. Subjective: Episode of chest discomfort yesterday. ECG without ischemia ( reviewed by me). No pain now. Feeling very sleepy. Breathing ok. Thinks that IV diuresis yesterday helped a lot. Objective: Vital Signs Temp Pulse Resp BP Pulse Ox 36.5 C 99 20 138/76 H 93 06/05/18 07:49 06/05/18 07:49 06/05/18 07:49 06/05/18 07:49 06/05/18 07:49 Laboratory Results 06/05/18 03:15 06/05/18 03:15 06/04/18 06/05/18 06/06/18 05:59 05:59 05:59 Intake Total 350 1825 325 Output Total 1475 2550 Balance -1125 -725 325 PT 17.6 SEC (12.0-15.0) H 06/03/18 05:20 INR 1.52 (0.83-1.16) H 06/03/18 05:20 - Physical Exam Constitutional: no apparent distress, chronically ill appearing Eyes: PERRL, icteric sclera Ears, Nose, Mouth, Throat: dry mucous membranes Cardiovascular: no murmur, rub, or gallop, tachycardia, edema Respiratory: no respiratory distress, reduced air movement (bases) Gastrointestinal: normoactive bowel sounds, soft, non-tender abdomen, no palpable masses Genitourinary: no bladder fullness, no bladder tenderness, no renal bruits Skin: no rashes or abrasions, no fluctuance, no induration Musculoskeletal: generalized weakness Neurologic: AAOx3 Psychiatric: interacting appropriately ICD10 Worksheet Patient Problems: Problems Problem Status Onset Congestive heart failure Acute Acute kidney injury (nontraumatic) Acute Hypercalcemia Acute
[2018-06-05 14:07] LABS: HEPATITIS B SURFACE ANTIGEN NEGATIVE (NEGATIVE); HEPATITIS C ANTIBODY TOTAL NEGATIVE (NEGATIVE)
--- NOTE | 2018-06-05 14:48 | SOAPPROG ---
SOAP Progress Note Assessment/Plan: Assessment/Plan: 47 y/o F with a h/o metastatic parathyroid carcinoma presented with a large liver mass, volume overload, and SKYE. SKYE -Cr stable again at 3.3 today -good diuresis yesterday -UPC 1.2g -K/L ratio <2 -etiology may be hepatorenal vs ATN -no urgent dialysis needs, palliative consult pending -would likely resume lower dose bumex again tomorrow -avoid nephrotoxins and hypotension Hypomagnesmia, hypokalemia -likely 2/2 to diuretic -continue to supplement prn Acidosis -bicarb increased yesterday, now at goal -likely 2/2 to SKYE Metastatic parathyroid CA with liver mass -PTH>2000 -follows with [facility]iter [facility] -await further recommendations Will continue to follow, please contact if ?'s. #[phone]. 06/05/18 14:49 Subjective: Having some orthostasis and backed off diuretic today. Made good UO yesterday. Awaiting palliative. Objective: Vital Signs Temp Pulse Resp BP Pulse Ox 36.8 C 105 H 14 139/84 H 95 06/05/18 11:19 06/05/18 11:19 06/05/18 11:19 06/05/18 11:19 06/05/18 11:19 Laboratory Results 06/05/18 03:15 06/05/18 03:15 06/04/18 06/05/18 06/06/18 05:59 05:59 05:59 Intake Total 350 1825 325 Output Total 1475 2550 440 Balance -1125 -725 -115 PT 17.6 SEC (12.0-15.0) H 06/03/18 05:20 INR 1.52 (0.83-1.16) H 06/03/18 05:20 Physical Exam - Physical Exam General Appearance: WD/WN, mild distress EENT: PERRL/EOMI Neck: non-tender, supple Respiratory: chest non-tender, decreased breath sounds Cardiac/Chest: regular rate, rhythm, edema Abdomen: non-tender, soft Skin: pallor Extremities: normal range of motion, swelling Neuro/Psych: oriented x 3, depressed affect ICD10 Worksheet Patient Problems: Problems Problem Status Onset Congestive heart failure Acute Acute kidney injury (nontraumatic) Acute Hypercalcemia Acute
--- NOTE | 2018-06-05 15:26 | GCON ---
[f rep st] CONSULTATION REFERRING PHYSICIAN: DR. MCFARLAND CHIEF COMPLAINT: A 47-year-old woman with metastatic parathyroid cancer with abnormal liver function tests. HISTORY OF PRESENT ILLNESS: I have been asked to see this 47-year-old woman in consultation by Dr. Mcfarland for evaluation of abnormal liver function tests. The patient has a very complex history. She is followed by Oncology. She has a history of CML and has also been diagnosed with parathyroid cancer. Her CML has been under good control with Tasigna. However, she has had difficulty with her parathyroid cancer. This was diagnosed in 2003, and was treated surgically. She had a subsequent left neck dissection in 2004 and then 2010. She underwent radiation therapy of her left neck and developed metastatic disease involving her lung and liver. She had hepatic resection in 2015 and then also 2016. She underwent Yttrium-90 therapy in December of 2017, and again in February 2018. She did develop severe hypercalcemia and she had evidence of adnexal masses. She went to the [facility] and underwent surgical resection of the adnexal masses, which were apparently parathyroid cancers from metastatic disease. She had a complicated surgical course, development of pelvic abscess. She developed acute renal failure probably related to hypercalcemia. During that hospital admission, she was noted to have abnormal liver function tests with elevated alkaline phosphatase and elevated bilirubin. At that time, they questioned related to TPN or possible antibiotics. She was discharged after 5-1/2-week hospital stay. She was admitted in [facility] on May 31, with severe edema and anasarca. Renal was consulted. She was placed on diuretics. She has had persistent renal insufficiency and significantly elevated liver function tests with a bilirubin around 6 with a significantly elevated alkaline phosphatase at 1500. A CT scan at the [facility] showed a lobulated liver surface consistent with cirrhosis. She has a known right hepatic lobe metastatic lesion. There was no evidence of biliary obstruction. A recent ultrasound at [facility] showed no biliary ductal dilatation and an MRI was a poor study without good visualization of biliary tract. The patient's total bilirubin is 6.6, with an AST of 167, ALT of 88 and alk phos of 157. Her INR is 1.52 with a PT of 17.6. PAST MEDICAL HISTORY: Remarkable for CML, parathyroid carcinoma, hypertension, hypothyroidism and depression. PAST SURGICAL HISTORY: Remarkable for thyroidectomy, left neck dissection, parathyroidectomy, diagnostic laparoscopy converted to exploratory laparotomy with bilateral salpingo-oophorectomy and right ureterolysis and lysis of adhesions. FAMILY HISTORY: Noncontributory as it pertains to the chief complaint. ALLERGIES: She has no known drug allergies. Reports allergy to conduction jelly. MEDICATIONS: Synthroid, melatonin, Zofran, Zoloft, albuterol, Lasix, subcu heparin. REVIEW OF SYSTEMS: Negative for 10 systems other than mentioned in the HPI. PHYSICAL EXAM: VITAL SIGNS: 138/76, heart rate 99, respiratory rate 20, 93% sats on room air, 36.5. In general very pleasant woman lying in bed in no acute distress. HEENT: NC, Atraumatic, EOMI, Neck is supple, mucous membranes moist. No thyromegaly Lung:Clear Cardiac: Normal S1S2 without murmer Abdomen: Normal BS, non-tender, no appreciable HSM Extremities: 3 + edema, no clubbing , no cyanosis. Skin: warm dry, intact Neuro: Non-focal Psych: Alert and orientated with normal affect ASSESSMENT: A 47-year-old woman with metastatic parathyroid cancer. Patient admitted to the hospital with anasarca, edema. Patient with known right liver lesion consistent with metastatic parathyroid cancer. She has had worsening liver function tests. This may be multifactorial, suspect secondary to tumor. Recommend Doppler ultrasounds to exclude possible portal vein or hepatic vein thrombosis. However, patient is without abdominal pain. Abnormal liver function tests may be also due to progressive tumor of the liver with underlying cirrhosis. RECOMMENDATION: 1. Doppler ultrasound of the liver hepatic vessels. 2. Autoimmune markers for AMA, anti-smooth muscle, iron, TIBC, ferritin, HB surface antigen, HCV. We will follow with you. /[id number]/MODL MTDD
--- NOTE | 2018-06-05 15:53 | SOAPPROG ---
CRYSTAL Progress Note Assessment/Plan: Assessment: 1. 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 She will need a change in therapy as an outpatient to either lenvatinib or sorafenib, however, these drugs are not well studied in the setting of both renal and hepatic insufficiency. Ideally her renal and hepatic function will be improved adequately upon discharge. She is followed by Dr. Lassiter at [facility] for this problem. 2. Transaminitis/hyperbilirubinemia - GI input appreciated. We are searching for reversible causes of hepatic dysfunction. 3. Ansarca 4. Chronic renal insufficiency - Cr. 3.3 5. CML - not currently an issue Plan: Multiorgan dysfunction. Unclear how much/if any is reversible. Trying to improve any reversible component. Functional status is poor. Needs assistance to sit up. Agree with palliative care consult. Subjective: Very fatigued. Objective: Vital Signs Temp Pulse Resp BP Pulse Ox 36.8 C 105 H 14 139/84 H 95 06/05/18 11:19 06/05/18 11:19 06/05/18 11:19 06/05/18 11:19 06/05/18 11:19 Laboratory Results 06/05/18 03:15 06/05/18 03:15 06/03/18 06/04/18 06/05/18 23:59 23:59 23:59 Intake Total 753 715 5676 Output Total 1425 1900 1440 Balance -975 -925 85 PT 17.6 SEC (12.0-15.0) H 06/03/18 05:20 INR 1.52 (0.83-1.16) H 06/03/18 05:20 Physical Exam - Physical Exam General Appearance: moderate distress EENT: scleral icterus (R), scleral icterus (L) Respiratory: decreased breath sounds Cardiac/Chest: regular rate, rhythm Abdomen: distended, ascites, other (decreased bowel sounds) Skin: jaundice Extremities: swelling (anasarca) Neuro/Psych: depressed affect ICD10 Worksheet Patient Problems: Problems Problem Status Onset Congestive heart failure Acute Acute kidney injury (nontraumatic) Acute Hypercalcemia Acute
[2018-06-05] MEDS: POTASSIUM Cl (KCl) 100 ML IV SCH ×2 (16:19→17:42)
[2018-06-05] MEDS: POTASSIUM Cl (KCl) 50 ML IV SCH (22:34)
[2018-06-06] MEDS: POTASSIUM Cl (KCl) 50 ML IV SCH (01:12)
[2018-06-06] MEDS: LEVOTHYROXINE 125 MCG TAB PO SCH (05:52)
[2018-06-06] MEDS: HEPARIN 5,000 UNIT/0.5 ML INJ SC SCH (05:53)
[2018-06-06] MEDS: CALCIUM CARBONATE 500 MG CHEWABLE TAB PO SCH ×3 (08:36→18:24)
[2018-06-06] MEDS ORDERED: POTASSIUM Cl (KCl) 50 ML IV ONE (09:08)
[2018-06-06] MEDS ORDERED: FUROSEMIDE 100 MG/10 ML VIAL IVP ONE (12:00)
--- NOTE | 2018-06-06 12:24 | SOAPPROG ---
SOAP Progress Note Assessment/Plan: Assessment/Plan: 47 y/o F with a h/o metastatic parathyroid carcinoma presented with a large liver mass, volume overload, and SKYE. SKYE -Cr stable again at 3.3 today -UPC 1.2g -K/L ratio <2 -etiology may be hepatorenal vs ATN given severe anemia on admission -no urgent dialysis needs however unclear if will recover significantly for possible immunotherapy trials -will resume low dose bumex for volume -avoid nephrotoxins and hypotension Hypomagnesmia, hypokalemia -likely 2/2 to diuretic -continue to supplement prn Acidosis -stable at 19 -likely 2/2 to SKYE Metastatic parathyroid CA with liver mass -PTH>2000 -follows with Dr. Lassiter of [facility] -await palliative consult Will continue to follow, please contact if ?'s. #[phone]. 06/06/18 12:24 Subjective: No more hypotension. Awaiting palliative. Oncology considering some options. Objective: Vital Signs Temp Pulse Resp BP Pulse Ox 36.9 C 105 H 22 H 141/87 H 93 06/06/18 11:55 06/06/18 11:55 06/06/18 11:55 06/06/18 11:55 06/06/18 11:55 Laboratory Results 06/05/18 03:15 06/06/18 06:00 06/05/18 06/06/18 06/07/18 05:59 05:59 05:59 Intake Total 1825 2255 Output Total 2550 2315 175 Balance -725 -60 -175 PT 17.6 SEC (12.0-15.0) H 06/03/18 05:20 INR 1.52 (0.83-1.16) H 06/03/18 05:20 Physical Exam - Physical Exam General Appearance: mild distress, obese EENT: PERRL/EOMI Neck: non-tender, full range of motion, supple Respiratory: chest non-tender, decreased breath sounds Cardiac/Chest: regular rate, rhythm, edema Abdomen: normal bowel sounds, non-tender, distended Skin: warm/dry, pallor Extremities: normal range of motion Neuro/Psych: no motor/sensory deficits, alert ICD10 Worksheet Patient Problems: Problems Problem Status Onset Congestive heart failure Acute Acute kidney injury (nontraumatic) Acute Hypercalcemia Acute
[2018-06-06] MEDS: BUMETANIDE 1 MG TAB PO SCH (12:39)
[2018-06-06] MEDS: PANTOPRAZOLE SODIUM 40 MG TAB PO SCH (12:52)
--- NOTE | 2018-06-06 13:48 | SOAPPROG ---
CRYSTAL Progress Note Assessment/Plan: Assessment: 1. 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 She will need a change in therapy as an outpatient to either lenvatinib or sorafenib, however, these drugs are not well studied in the setting of both renal and hepatic insufficiency. Ideally her renal and hepatic function will be improved adequately upon discharge. She is followed by Dr. Lassiter at [facility] for this problem. 2. Transaminitis/hyperbilirubinemia - GI input appreciated. T.Bili continues to climb and is now >7. I recommended that we hold her Tasigna since it may be contributing to both hepatic dysfunction and edema. 3. Ansarca 4. Chronic renal insufficiency - Cr. 3.3 stable today 5. CML - not currently an issue - will hold Tasigna as stated above. Plan: Multiorgan dysfunction. Unclear how much/if any is reversible. Trying to improve any reversible component. Functional status is poor. Needs assistance to sit up. Will hold Tasigna to see if it is contributing to her hepatic dysfunction. Subjective: Weak but was able to shower with some assistance Objective: Vital Signs Temp Pulse Resp BP Pulse Ox 36.9 C 105 H 22 H 141/87 H 93 06/06/18 11:55 06/06/18 11:55 06/06/18 11:55 06/06/18 11:55 06/06/18 11:55 Laboratory Results 06/05/18 03:15 06/06/18 06:00 06/04/18 06/05/18 06/06/18 23:59 23:59 23:59 Intake Total 975 3005 750 Output Total 1900 3015 475 Balance -925 -10 275 PT 17.6 SEC (12.0-15.0) H 06/03/18 05:20 INR 1.52 (0.83-1.16) H 06/03/18 05:20 Physical Exam - Physical Exam General Appearance: moderate distress, obese EENT: scleral icterus (R), scleral icterus (L) Respiratory: other (diminished breath sounds) Cardiac/Chest: regular rate, rhythm Abdomen: distended Skin: jaundice, pallor Neuro/Psych: depressed affect ICD10 Worksheet Patient Problems: Problems Problem Status Onset Congestive heart failure Acute Acute kidney injury (nontraumatic) Acute Hypercalcemia Acute
--- NOTE | 2018-06-06 14:28 | SOAPPROG ---
CRYSTAL Progress Note Assessment/Plan: Assessment: Abnormal LFT's jaundice and markedly elevated Alk phos all consistent with metastatic disease to the liver. Plan: Discussed with Dr. Glass. There is nothing to offer from a GI stand point. Will sign off. Please call with further questions. 06/06/18 14:30 Subjective: CC: Metastatic hyperparathyroid cancer. Objective: Vital Signs Temp Pulse Resp BP Pulse Ox 36.9 C 105 H 22 H 141/87 H 93 06/06/18 11:55 06/06/18 11:55 06/06/18 11:55 06/06/18 11:55 06/06/18 11:55 Laboratory Results 06/05/18 03:15 06/06/18 06:00 06/05/18 06/06/18 06/07/18 05:59 05:59 05:59 Intake Total 1825 2255 300 Output Total 2550 2315 175 Balance -725 -60 125 PT 17.6 SEC (12.0-15.0) H 06/03/18 05:20 INR 1.52 (0.83-1.16) H 06/03/18 05:20 ICD10 Worksheet Patient Problems: Problems Problem Status Onset Congestive heart failure Acute Acute kidney injury (nontraumatic) Acute Hypercalcemia Acute
--- NOTE | 2018-06-06 15:01 | ASMTCMCOM ---
CM Note CM Note Notes: Pts case discussed in tx rounds. Dr. Willson is recommending that pt goes home w/ HC RN and SPECIAL PROCEDURES NURSE. CM met w/ pt and for dispo planning. They do not have a preference on HC agency as long as it is covered by their insurance. Referral sent to [facility] per the request of the family. The [facility] doctor stopped by and met w/ pt and today. CM to follow. Plan: HC; RN, SPECIAL PROCEDURES NURSE with [facility] Date Signed: 06/06/2018 03:01 PM Electronically Signed By:GRANT Mckenzie
--- NOTE | 2018-06-06 15:25 | GCON ---
[f rep st] CONSULTATION PALLIATIVE MEDICINE CONSULT DATE OF CONSULTATION: 06/06/2018 REFERRING PHYSICIAN: Josemanuel Willson MD CHIEF COMPLAINT: Dr. Juancarlos Willson, requests goals of care conversation and assistance with symptom management. HISTORY OF PRESENT ILLNESS: This is a 47-year-old woman who has a complicated cancer history. She is being treated for CML by Dr. Fonseca at [facility]. Her CML is quiescent. Unfortunately, she is also being treated for metastatic hyperparathyroid cancer. Her metastatic sites include the lung and liver. This was diagnosed in 2003. She has undergone resection of her hepatic masses. She has had multiple lines of treatment. Unfortunately, her disease continues to progress. She was hospitalized at the [facility] from April 17, through May 17. She required TPN during that admission. Currently, she will be pursuing non standard treatment multi- targeted tyrosine kinase inhibitor, lenvatinib. For the patient, her primary goal is to be able to return to being a mother and . 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 She feels her biggest challenges right now are in preparing physically and mentally for ongoing attempts at treatment. She is followed by Dr. Lassiter at the [facility] for her hyperparathyroid cancer. We had a phone conference with him while she has been at [facility]. She will follow up with him immediately after discharge from [facility]. She reports progressive dysphagia that has worsened since she had a nasogastric tube while at the [facility]. She also reports significant morning phlegm. The patient reports Tums really seems to help with this phlegm production and overall making her feel better. It is also being used to manage her calcium, which became quite low after her recent treatment for hypercalcemia at the [facility]. She and her family report there are plans to have a swallow evaluation done. She denies any muscle aches or pains. She denies any pain anywhere outside of some minor discomfort that is managed with Tylenol. She reports significant weakness. She also has shortness of breath that her family notices when she attempts minimal activity. They have noted a dramatic decline in her overall endurance. She needs to rest several times if she climbs a short flight of stairs. She has told her niece that it feels as if there is "cement" in her lungs. She denies problems with headaches or vision changes. She denies chest pain or palpitations. She denies diarrhea or constipation or problems with nausea. She simply feels weak and fatigued. She also reports diffuse body swelling. ROS: As indicated in the HPI. PAST MEDICAL HISTORY: 1. Metastatic hyperparathyroid cancer. 2. CML. 3. Hypercalcemia related to her malignancy. 4. Hypertension. 5. Hypothyroidism. 6. Depression. 7. Obstructive sleep apnea for which she uses CPAP at night. SOCIAL HISTORY: She is and has 2 young adult children. She would want her to be her decision maker should she be unable to make decisions for herself. FAMILY HISTORY: As indicated in previously dictated history and physicals. ALLERGIES: None known. CURRENT MEDICATIONS: By review of [employer], include Tylenol as needed, albuterol inhaler as needed, Activase as needed, Tessalon Perles 100 mg 3 times daily as needed, Bumex 1 mg daily, Tums 500 mg p.o. 3 times daily, hydroxyzine 25 mg every 6 hours as needed, levothyroxine 125 mcg p.o. daily, melatonin 3 mg p.o. at bedtime as needed, a supplement which she takes 400 mg twice daily unnamed, Zofran 4 mg IV every 4 hours as needed, or by mouth, Zoloft 75 mg p.o. at bedtime, recently increased from 50 mg, sodium bicarbonate 1300 mg p.o. at bedtime, [place] spray for her nares every 2 hours as needed. PHYSICAL EXAM: VITAL SIGNS: Blood pressure is 120/81, heart rate is 103, respiratory rate is 24, she is currently saturating 94% on room air. GENERAL: She is fatigued and ill appearing. She is also jaundiced. Able to participate in conversation appropriately given her clinical condition. HEENT: Mild icterus. Intact hearing. Intact dentition. CARDIOVASCULAR: Regular rate and rhythm. She has +3 or greater edema in her legs. RESPIRATORY: Anterior auscultation only. Clear. No adventitious sounds heard. GASTROINTESTINAL: Positive bowel sounds, soft at this time. MUSCULOSKELETAL: Minimally able to bend legs. Family does report she needs assistance to sit up in bed, but can still ambulate to the shower. NEUROLOGIC: Cranial nerves 2 through 12 are grossly intact. She can follow all commands and participate appropriately in conversation. SIGNIFICANT LABORATORY DATA: Her white blood cell count is 7.65, her hemoglobin is 8, and her platelets are 256. Her sodium is 134, potassium 3.7, chloride 100, bicarbonate 19, BUN 21, creatinine 3.2, with a glucose of 95. Her baseline creatinine is around 1.6. ASSESSMENT AND PLAN: This is a 47-year-old woman with metastatic hyperparathyroid cancer. She has tried multiple treatment options, but her disease continues to progress, and therefore, she is progressing to lenvatinib. She will receive this through Dr. Lassiter. 1. Goals of care. To return to as normal a life as possible. I encouraged the patient that in order to tolerate her next line of treatment, she needed to improve her strength. I encouraged her to do leg lifts and pelvic lifts during every commercial break while she is in the hospital watching television. The patient has made it clear that she wishes to defer conversations of prognosis as well as less optimistic medical conversations to her family, who will then filter it to her. Green [employer] Analystklaudia Weber will complete medical [id number] paperwork with the patient and her tomorrow. 2. Declining endurance and shortness of breath. I suggested low-dose morphine to help her improve her participation in physical therapy. We will start with 1.25 mg every 2 hours as needed and encourage use prior to therapies. 3. Depression. Her Zoloft was recently increased from 50 mg to 75 mg. I will follow up with the patient as an outpatient to assess the benefit of this dose and further titrate, if necessary. 4. Water brash. Her symptoms seem consistent with gastroesophageal reflux disease. We will try adding a proton pump inhibitor to see if that improves her symptoms as well. 5. Followup. The patient will be seen at home, by [facility], after her appointment with Dr. Lassiter at [facility] for ongoing emotional support as well as symptom management. Please note, that approximately 75 minutes have been spent in this visit, including review of chart and speaking with her hospital providers. Copy requested to: [facility], Dr. Lassiter [facility] Oncology Department /[id number]/MODL MTDD
--- NOTE | 2018-06-06 16:39 | HOSPPROG ---
Hospitalist Progress Note Assessment/Plan: 47 yo F w/ hx of metastatic parathyroid carcinoma with recent complicated course presents with anasarca. #Anasarca: Multifactorial from renal, hepatic processes and pHTN. Good UOP. Weight stable. - Switch to bumex today #Liver failure: Worsening labs. GI consulted - likely r/t metastatic dz. - Stop tasigna, monitor LFTs and INR #SKYE on CKD: Likely new baseline low 3s. Recent injury from hyperCa and hypotension/ATN. - Renal following, appreciate assistance #Metastatic parathyroid carcinoma: Mets to liver, lungs, LNs, and ovaries. - Palliative care met with patient today - D/w her primary oncologist Dr Lassiter. He would like to try her on multi- kinase inhibitor (lenvatinib or sorafenib) once out of hospital #Hypokalemia, hypomag: D/t diuresis - Ok to replete w/IV K if needed (she has picc) #Syncopal episode: Tele quiet. Non-focal neuro exam. No further episodes. #Pulmonary hypertension: Due to nae, fluid overload. - Uses CPAP #Indeterminate troponin: Demand in setting of volume overload, peaked 0.25. TTE without WMA. - Hold on ischemic evaluation #Right pelvic wall abscess: S/p 3 weeks of zosyn (stopped d/t worsening liver fxn). No signs of infection, recent outpt blood cultures negative. - Hold on additional abx #Hypocalcemia: This is interesting given her cancer. She has been severely hypercalcemic in the past. - Monitor on telemetry #AGMA: D/t renal failure. - Now on bicarb and improved #Normocytic anemia: Stable. Likely d/t recent surgery in setting of renal dysfunction. - Renal has ordered EPO. #CML: In remission, f/b Dr Fonseca at [facility]. - Stopping nilotinib. #Subclinical hypothyroidism - Cont LT4 replacement #Recent rectus sheath hematoma: Per corhio, too small for surgical intervention. No e/o bleeding. #Deconditioning: D/t prolonged hospital course. - PT/OT consulted #Sinus tachycardia: Persistent since last hospitalization. Remains in 100s. Diet - Cardiac Code - Full Ppx - SQH Dispo - Remain inpatient. ADD uncertain. Goals of care: Palliative met with patient. She is interested in quantity of life over quality. I do not think she would tolerate any systemic therapy given her poor functional status and liver/kidney impairment. Her kidney and liver issues are unlikely to be reversible. If liver function continues to worsen over next few days, she will likely require hospice. For now, she is still interested in getting home with home care + palliative support. Subjective: No major changes today. Some swallowing difficulty yesterday. Hasn' t walked yet today. Objective: Vital Signs Temp Pulse Resp BP Pulse Ox 36.9 C 105 H 22 H 141/87 H 93 06/06/18 11:55 06/06/18 11:55 06/06/18 11:55 06/06/18 11:55 06/06/18 11:55 Laboratory Results 06/05/18 03:15 06/06/18 06:00 06/05/18 06/06/18 06/07/18 05:59 05:59 05:59 Intake Total 1825 2255 300 Output Total 2550 2315 175 Balance -725 -60 125 PT 17.6 SEC (12.0-15.0) H 06/03/18 05:20 INR 1.52 (0.83-1.16) H 06/03/18 05:20 - Physical Exam Constitutional: no apparent distress, chronically ill appearing Eyes: PERRL, icteric sclera Ears, Nose, Mouth, Throat: dry mucous membranes Cardiovascular: no murmur, rub, or gallop, tachycardia, edema Respiratory: no respiratory distress, reduced air movement (bases) Gastrointestinal: normoactive bowel sounds, soft, non-tender abdomen, no palpable masses Genitourinary: no bladder fullness, no bladder tenderness, no renal bruits Skin: warm, other (jaundiced), No erythema Musculoskeletal: generalized weakness Neurologic: AAOx3 Psychiatric: interacting appropriately ICD10 Worksheet Patient Problems: Problems Problem Status Onset Congestive heart failure Acute Acute kidney injury (nontraumatic) Acute Hypercalcemia Acute
[2018-06-06] MEDS: SERTRALINE HCL 50 MG TAB PO SCH (20:47)
[2018-06-06] MEDS: SODIUM BICARBONATE 650 MG TAB PO SCH (20:50)
[2018-06-06] MEDS: POTASSIUM Cl (KCl) 100 ML IV SCH ×3 (20:59→23:07)
[2018-06-06] MEDS: MELATONIN 3 MG TAB PO PRN (23:14)
[2018-06-07 04:56] LABS: INR 1.76 (0.83-1.16); PROTIME(PATIENT) 19.7 SEC (12.0-15.0)
[2018-06-07] MEDS: LEVOTHYROXINE 125 MCG TAB PO SCH (06:15)
[2018-06-07] MEDS ORDERED: POTASSIUM CL 10 MEQ TAB PO ONE (08:45)
--- NOTE | 2018-06-07 08:53 | SOAPPROG ---
SOAP Progress Note Assessment/Plan: Assessment: SKYE, creat remains stable in low 3's metastatic parathyroid cancer, large liver mass, PTH 2562, discussion Tuesday with her oncologist at [facility], Dr. Lassiter, she doesn't remember much, she slept through most of it, but her family was there hypokalemia, supps underway volume overload and peripheral edema, diuresing, will change to bumex for better bioavailability in edematous gut, will give some IV lasix and albumin as well, as needed proteinuria, not nephrotic Up/c about 1.2g/g creat acidosis, adjusted bicarb hypomagnesemia, supps underway anemia, multifactorial UOP remains quite reasonable, generally about 2L daily Plan: Supp K Supp Mg continue diuresis echo results reviewed no urgent HD needs, talked about dialysis as a means of volume removal, again, having about 2L UOP daily which is probably in the range we would be able to remove on dialysis. All questions answered Had an appt with oncology at [place] (Dr. Lassiter) Tuesday, had phone conference instead. 06/01/18 10:00 06/02/18 09:20 06/03/18 14:00 06/04/18 13:10 06/07/18 08:49 Subjective: A little better mobility since I last saw her on Tuesday getting out of bed on her own, walked in the halls with family yesterday appetite OK no cp, SOB about the same no nausea or vomiting spirits not great, affect fairly flat Objective: Vital Signs Temp Pulse Resp BP Pulse Ox 36.5 C 100 18 142/96 H 95 06/07/18 07:59 06/07/18 07:59 06/07/18 07:59 06/07/18 07:59 06/07/18 07:59 Laboratory Results 06/07/18 04:35 06/07/18 04:35 06/06/18 06/07/18 06/08/18 05:59 05:59 05:59 Intake Total 2255 920 Output Total 2315 725 Balance -60 195 PT 19.7 SEC (12.0-15.0) H 06/07/18 04:35 INR 1.76 (0.83-1.16) H 06/07/18 04:35 Physical Exam - Physical Exam General Appearance: alert, other (edematous) Neck: normal inspection Respiratory: rales, rhonchi Cardiac/Chest: regular rate, rhythm, edema, No friction rub Abdomen: normal bowel sounds, non-tender, other (edema) Extremities: swelling Neuro/Psych: alert, oriented x 3, other (flat affect) ICD10 Worksheet Patient Problems: Problems Problem Status Onset Congestive heart failure Acute Acute kidney injury (nontraumatic) Acute Hypercalcemia Acute
[2018-06-07] MEDS: PANTOPRAZOLE SODIUM 40 MG TAB PO SCH (09:06)
[2018-06-07] MEDS: CALCIUM CARBONATE 500 MG CHEWABLE TAB PO SCH ×3 (09:06→17:19)
[2018-06-07] MEDS: BUMETANIDE 1 MG TAB PO SCH (09:06)
--- NOTE | 2018-06-07 12:07 | ASMTCMCOM ---
CM Note CM Note Notes: Pts case discussed in tx rounds. Wei HERNANDEZ is able to staff this case. Winsome from [facility] met w/ pt and told her that she will most likely have a to pay out of pocket until deductible met then pay 20% per visit after that. Pt was agreeable to paying. Pt will most likely d/c either tomorrow or Tuesday. CM to follow. Plan: SHANNAN Pritchett w/ Wei HERNANDEZ; RN, GROUP SALES REPRESENTATIVE Date Signed: 06/07/2018 12:06 PM Electronically Signed By:GRANT Mckenzie
--- NOTE | 2018-06-07 12:58 | SOAPPROG ---
SOAP Progress Note Assessment/Plan: Assessment: 1. 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 She will need a change in therapy as an outpatient to either lenvatinib or sorafenib, however, these drugs are not well studied in the setting of both renal and hepatic insufficiency. Ideally her renal and hepatic function will be improved adequately upon discharge. She is followed by Dr. Lassiter at [facility] for this problem. 2. Transaminitis/hyperbilirubinemia - GI input appreciated. T.Bili continues to climb and is now 7.3 . INR is now 1.76 without anticoagulation. She has significant hepatic dysfunction (Child Class C) 3. Ansarca 4. Chronic renal insufficiency - Cr. 3.4. Slightly worse today. 5. CML - Tasigna is held due to hepatic dysfunction. Her WBC has jumped from 7 to 18k. I doubt this is due to her CML. Will need to watch carefully for infection. Plan: Multiorgan dysfunction. Unclear how much/if any is reversible. Trying to improve any reversible component. Functional status is poor. Needs assistance to sit up. Will hold Tasigna to see if it is contributing to her hepatic dysfunction. Monitor for infection and have a low threshold for starting antibiotics/ obtaining cultures. Hoping to d/c to home with palliative/home health care in the next couple of days. Subjective: Eating onion soup. Awake but not very communicative. Sister is at the bedside. Objective: Vital Signs Temp Pulse Resp BP Pulse Ox 36.7 C 99 18 134/92 H 98 06/07/18 11:46 06/07/18 11:46 06/07/18 07:59 06/07/18 11:46 06/07/18 11:46 Laboratory Results 06/07/18 04:35 06/07/18 04:35 06/05/18 06/06/18 06/07/18 23:59 23:59 23:59 Intake Total 3005 750 620 Output Total 3015 825 300 Balance -10 -75 320 PT 19.7 SEC (12.0-15.0) H 06/07/18 04:35 INR 1.76 (0.83-1.16) H 06/07/18 04:35 Physical Exam - Physical Exam General Appearance: no apparent distress EENT: scleral icterus (R), scleral icterus (L) Respiratory: decreased breath sounds (at bases) Cardiac/Chest: regular rate, rhythm Abdomen: distended, ascites Skin: jaundice Extremities: swelling Neuro/Psych: depressed affect ICD10 Worksheet Patient Problems: Problems Problem Status Onset Congestive heart failure Acute Acute kidney injury (nontraumatic) Acute Hypercalcemia Acute
--- NOTE | 2018-06-07 13:12 | HOSPPROG ---
Hospitalist Progress Note Assessment/Plan: 47 yo F w/ hx of metastatic parathyroid carcinoma with recent complicated course presents with anasarca. #Anasarca: Multifactorial from renal, hepatic processes and pHTN. Good UOP. Weight stable. - cont Bumex. PRN Albumin, PRN Lasix. None today #Liver failure: Worsening labs. -due to metastatic disease -GI consulted but signed off, no reversible causes identified - Stop tasigna -monitor LFTs and INR. INR today is elevated #SKYE on CKD: Likely new baseline low 3s. Recent injury from hyperCa and hypotension/ATN. - Renal following, appreciate assistance -overall stable #Metastatic parathyroid carcinoma: Mets to liver, lungs, LNs, and ovaries. - Palliative care following, pt not ready for hospice yet - D/w her primary oncologist Dr Lassiter. He would like to try her on multi- kinase inhibitor (lenvatinib or sorafenib) once out of hospital #Hypokalemia, hypomag: D/t diuresis - Ok to replete w/IV K if needed (she has picc) #Syncopal episode: Tele quiet. Non-focal neuro exam. No further episodes. #Pulmonary hypertension: Due to nae, fluid overload. - Uses CPAP #Indeterminate troponin: Demand in setting of volume overload, peaked 0.25. TTE without WMA. - Hold on ischemic evaluation #Right pelvic wall abscess: S/p 3 weeks of zosyn (stopped d/t worsening liver fxn). Pt's reports only 7 doses. - No signs of infection on admission. recent outpt blood cultures negative. - New Leukocytosis noted. Unclear etiology. Afebrile. monitor closely and abx if need - check PC - check blood culture #Hypocalcemia: This is interesting given her cancer. She has been severely hypercalcemic in the past. - Monitor on telemetry #AGMA: D/t renal failure. - Now on bicarb and improved #Normocytic anemia: Stable. Likely d/t recent surgery in setting of renal dysfunction. - Renal has ordered EPO. #CML: In remission, f/b Dr Fonseca at [facility]. - Stopping nilotinib. #Subclinical hypothyroidism - Cont LT4 replacement #Recent rectus sheath hematoma: Per corhio, too small for surgical intervention. No e/o bleeding. #Deconditioning: D/t prolonged hospital course. - PT/OT consulted #Sinus tachycardia: Persistent since last hospitalization. Remains in 100s. #Encephalopathy, metabolic, multifactoria -check Ammonia Diet - Cardiac Code - Full Ppx - SQH Dispo - Remain inpatient. ADD uncertain. Goals of care: Palliative met with patient. She is interested in quantity of life over quality. I do not think she would tolerate any systemic therapy given her poor functional status and liver/kidney impairment. Her kidney and liver issues are unlikely to be reversible. If liver function continues to worsen over next few days, she will likely require hospice. For now, she is still interested in getting home with home care + palliative support. Prognosis: poor Subjective: no cp or sob. INR is elevated. Still with edema, about the same. no resp symptoms Objective: Vital Signs Temp Pulse Resp BP Pulse Ox 36.7 C 99 18 134/92 H 98 06/07/18 11:46 06/07/18 11:46 06/07/18 07:59 06/07/18 11:46 06/07/18 11:46 Laboratory Results 06/07/18 04:35 06/07/18 04:35 06/06/18 06/07/18 06/08/18 05:59 05:59 05:59 Intake Total 2255 920 Output Total 2315 725 100 Balance -60 195 -100 PT 19.7 SEC (12.0-15.0) H 06/07/18 04:35 INR 1.76 (0.83-1.16) H 06/07/18 04:35 - Physical Exam Constitutional: no apparent distress Eyes: PERRL, EOMI Ears, Nose, Mouth, Throat: moist mucous membranes, hearing normal Cardiovascular: regular rate and rhythym, no murmur, rub, or gallop, systolic murmur Respiratory: no respiratory distress Gastrointestinal: normoactive bowel sounds, soft, non-tender abdomen Skin: warm Musculoskeletal: generalized weakness Neurologic: AAOx3 (bust somewhat confused) Psychiatric: interacting appropriately, poor judgement Lymph, Heme, Immunologic: No petechiae ICD10 Worksheet Patient Problems: Problems Problem Status Onset Congestive heart failure Acute Acute kidney injury (nontraumatic) Acute Hypercalcemia Acute
[2018-06-07] MEDS: MELATONIN 3 MG TAB PO PRN (20:33)
[2018-06-07] MEDS: SERTRALINE HCL 50 MG TAB PO SCH (20:33)
[2018-06-07] MEDS: SODIUM BICARBONATE 650 MG TAB PO SCH (20:39)
[2018-06-08] MEDS ORDERED: LORazepam 0.5 MG TAB PO ONE (02:55)
[2018-06-08 03:34] LABS: PLATELET COUNT 236 10^3/uL (150-400)
[2018-06-08 03:46] LABS: INR 1.77 (0.83-1.16); PROTIME(PATIENT) 19.8 SEC (12.0-15.0)
[2018-06-08] MEDS: PANTOPRAZOLE SODIUM 40 MG TAB PO SCH (09:19)
[2018-06-08] MEDS: BUMETANIDE 1 MG TAB PO SCH (09:19)
[2018-06-08] MEDS: CALCIUM CARBONATE 500 MG CHEWABLE TAB PO SCH ×3 (09:19→19:19)
[2018-06-08] MEDS: LEVOTHYROXINE 125 MCG TAB PO SCH (09:19)
[2018-06-08] MEDS ORDERED: POTASSIUM CL 10 MEQ TAB PO ONE (10:49)
[2018-06-08] MEDS: LACTULOSE 20 GM/30 ML UDCUP PO SCH ×3 (11:58→21:05)
--- NOTE | 2018-06-08 13:22 | HOSPPROG ---
Hospitalist Progress Note Assessment/Plan: 47 yo F w/ hx of metastatic parathyroid carcinoma with recent complicated course presents with anasarca. #Anasarca: Multifactorial from renal, hepatic processes and pHTN. Good UOP. Weight stable. - cont Bumex. PRN Albumin, PRN Lasix. She may need more IV Lasix today. See below #Hypoxemia and Tachynea - I suspect she may be developing some pulmonary vascular congestion. Will obtain CXR. Pending results will provide additional diuretics. Cr. has mildly increased today and this is noted #Liver failure: Worsening labs. -due to metastatic disease -GI consulted but signed off, no reversible causes identified - Stop tasigna -monitor LFTs and INR. INR today remains elevated #Hepatic Encephalopathy, mild -ammonia is elevated -start Lactulose #SKYE on CKD: Likely new baseline low 3s. Recent injury from hyperCa and hypotension/ATN. - Renal following, appreciate assistance #Metastatic parathyroid carcinoma: Mets to liver, lungs, LNs, and ovaries. - Palliative care following, pt not ready for hospice yet - D/w her primary oncologist Dr Lassiter. He would like to try her on multi- kinase inhibitor (lenvatinib or sorafenib) once out of hospital #Hypokalemia, hypomag: D/t diuresis - Ok to replete w/IV K if needed (she has picc) #Syncopal episode: Tele quiet. Non-focal neuro exam. No further episodes. #Pulmonary hypertension: Due to nae, fluid overload. - Uses CPAP #Indeterminate troponin: Demand in setting of volume overload, peaked 0.25. TTE without WMA. - Hold on ischemic evaluation #Right pelvic wall abscess: S/p 3 weeks of zosyn (stopped d/t worsening liver fxn). Pt's reports only 7 doses. - No signs of infection on admission. recent outpt blood cultures negative. - New Leukocytosis noted on 06/07. Worse today. Afebrile but had chills this morning. Will consult ID today - blood culture on 06/07 remains negative - VS stable #Hypocalcemia: This is interesting given her cancer. She has been severely hypercalcemic in the past. - Monitor on telemetry #AGMA: D/t renal failure. - Now on bicarb and improved #Normocytic anemia: Stable. Likely d/t recent surgery in setting of renal dysfunction. - Renal has ordered EPO. #CML: In remission, f/b Dr Fonseca at [facility]. - Stopping nilotinib. #Subclinical hypothyroidism - Cont LT4 replacement #Recent rectus sheath hematoma: Per corhio, too small for surgical intervention. No e/o bleeding. #Deconditioning: D/t prolonged hospital course. - PT/OT consulted #Sinus tachycardia: Persistent since last hospitalization. Remains in 100s. #Encephalopathy, metabolic, multifactoria -check Ammonia Diet - Cardiac Code - Full Ppx - SQH Dispo - Remain inpatient. ADD uncertain. Goals of care: Palliative met with patient. She is interested in quantity of life over quality. I do not think she would tolerate any systemic therapy given her poor functional status and liver/kidney impairment. Her kidney and liver issues are unlikely to be reversible. If liver function continues to worsen over next few days, she will likely require hospice. For now, she is still interested in getting home with home care + palliative support. Prognosis: poor Subjective: increased work of breathing. denies pain Objective: Vital Signs Temp Pulse Resp BP Pulse Ox 36.4 C 102 H 20 148/99 H 96 06/08/18 12:00 06/08/18 12:00 06/08/18 07:22 06/08/18 12:00 06/08/18 12:00 Laboratory Results 06/08/18 03:15 06/08/18 03:15 06/07/18 06/08/18 06/09/18 05:59 05:59 05:59 Intake Total 920 1000 Output Total 725 300 Balance 195 700 PT 19.8 SEC (12.0-15.0) H 06/08/18 03:15 INR 1.77 (0.83-1.16) H 06/08/18 03:15 - Time Spent With Patient Time Spent with Patient: greater than 35 minutes Time Spent with Patient: Greater than 35 minutes spent on this patients care, greater than 50% of time spent counseling, educating, and coordinating care regarding the above mentioned plan. - Physical Exam Constitutional: no apparent distress, chronically ill appearing Eyes: PERRL Ears, Nose, Mouth, Throat: moist mucous membranes Cardiovascular: regular rate and rhythym, edema Respiratory: reduced air movement, No no respiratory distress (increased work of breathing) Gastrointestinal: normoactive bowel sounds Skin: warm Neurologic: AAOx3 Psychiatric: interacting appropriately, not anxious, No not encephalopathic ( mild confusion noted) Lymph, Heme, Immunologic: No petechiae ICD10 Worksheet Patient Problems: Problems Problem Status Onset Congestive heart failure Acute Acute kidney injury (nontraumatic) Acute Hypercalcemia Acute
--- NOTE | 2018-06-08 13:52 | PDCONSULT ---
Social Media Developer Note: Infectious Diseases Consult Note Impression: 47-year-old woman with increasing leukocytosis over the past 36 hr without overt signs or symptoms of an active infection. It appears that her pelvic abscess was treated to completion by the Infectious Disease group at [facility]. Suspect that her leukocytosis, particularly considering the increased cell counts of the granulocytic lying generally speaking, is related to her CML becoming more active after having stopped her oral chemotherapy medication. Will continue to follow evaluate for overt signs or symptoms of infection. 1. Leukocytosis, neutrophil predominance but also with elevated eosinophils, monocytes, and metamyelocytes 2. History of CML 3. Active, metastatic parathyroid carcinoma with metastatic disease to the lungs , liver, ovaries 4. Status post BSO 04/21/2018 5. History of right pelvic wall abscess April 2018, improved 6. Probable chronic kidney disease 7. Acute kidney injury, improved from April 2018 Plan: 1. Would not start systemic antibiotics at this time 2. Continue to monitor for overt signs or symptoms of infection 3. ID will continue to follow evaluate for changes indicative of infection Edgardo Ramirez MD Infectious Diseases Chief Complaint: Swelling Requesting Provider: Dr. Tran Reason for Referral: Consultation was requested by Dr. Tran regarding antimicrobial management. HPI: 47-year-old woman who presents to the hospital with increasing edema. Patient mildly confused on exam with limitations in history, history primarily obtained from medical record. It is notable that she was admitted to the [facility] between 04/17/2018 and 05/17/2018 when she is admitted for hypercalcemia which she has had a problem with in the past. She underwent an exploratory laparotomy a BSO and was found to have parathyroid carcinoma starting her ovaries and other areas the abdomen. Postoperatively she was noted to have a right pelvic wall abscess that was treated with pip/tazo. She does not recall the stop date on her pip/tazo but it appears that she was treated for approximately 3 weeks. She notes no fever or chills prior to admission number since admission. She is not having diarrhea or constipation, states that her bowel movements are normal. No rash, arthralgias, myalgias. She has not been coughing and has no specific complaints. Noted to have right pelvic sidewall gas and fluid containing collection measuring 3.2 x 5.5 cm that was suspicious for a postoperative abscess seen on his CT scan obtained 04/29/2018. She was treated with Zosyn through at least . Reviewed patient medical records in [facility], and [facility] ([facility]). Past Medical History: Pelvic abscess complicating admission in April 2018; Parathyroid carcinoma (1998) with metastases to the liver, lung, and ovary, CML (2008), pelvic abscess May 2018 Past Surgical History: Exploratory laparotomy, BSO (04/21/2018); thyroidectomy; cholecystectomy Social History: Does not use tobacco products; Does not consume marijuana products; does not drink alcohol; Does not use any other drugs currently Family History: No family members with recurrent infections Allergies: No known antibiotic allergies Medications: Reviewed in medical record. ROS: 10 organ systems reviewed; pertinent positives and negatives listed in the HPI, all other organ systems negative. Physical Exam: VS: Reviewed Gen: No acute distress; Breathing comfortably without supplemental oxygen; Able to speak in complete sentences Eyes: No conjunctival injection; Scleral icterus HENT: No gross deformities Neck: No limitation in range of motion Pulm: Audible inspiratory sounds to the bases bilaterally; No wheeze, rhonchi, or rales CV: Normal S1 and S2; Regular rate and rhythm; No murmurs, rubs, or gallops; anasarca Abd: Obese; Not distended; hypo-active bowel sounds; Soft; Non-tender Skin: A full skin exam including exposed bilateral upper extremities, bilateral lower extremities to the knees, face, neck, abdomen, chest, and back performed; Skin intact, warm, with no rash; icteric skin MSK: Joints without erythema or edema; No gross limitation in range of motion Ext: No clubbing or cyanosis Neuro: Awake and alert Psych: Depressed mood and blunted affect Labs/Imaging: All microbiology testing (culture and non-culture) reviewed in the medical record. Personally reviewed and interpreted the images of the following radiographs: MRI of the abdomen revealing at least 1 liver mass over 5 cm in diameter. Microbiology Laboratory Tests 05/31/18 06/03/18 06/03/18 11:22 05:20 21:00 WBC 4.14 Absolute Seg Neuts Absolute Lymphocytes INR 1.52 H Creatinine Total Bilirubin Conjugated Bilirubin Unconjugated Bilirubin AST ALT Alkaline Phosphatase Procalcitonin Hep Bs Antigen NEGATIVE Hep Bs Antibody NEGATIVE Hep B Core Total Ab NEGATIVE Hepatitis C Antibody NEGATIVE 06/04/18 06/05/18 06/06/18 04:50 03:15 06:00 WBC 7.65 Absolute Seg Neuts 0.63 L 3.29 Absolute Lymphocytes 0.99 L 0.77 L INR Creatinine 3.3 H Total Bilirubin 7.1 H Conjugated Bilirubin 5.9 H Unconjugated Bilirubin 1.2 H AST 129 H ALT 84 H Alkaline Phosphatase 1493 H Procalcitonin Hep Bs Antigen Hep Bs Antibody Hep B Core Total Ab Hepatitis C Antibody 06/07/18 06/07/18 06/07/18 04:35 04:35 04:35 WBC 18.21 H Absolute Seg Neuts Absolute Lymphocytes INR 1.76 H Creatinine 3.4 H Total Bilirubin 7.3 H Conjugated Bilirubin 6.0 H Unconjugated Bilirubin 1.3 H AST 115 H ALT 77 H Alkaline Phosphatase 1500 H Procalcitonin Hep Bs Antigen Hep Bs Antibody Hep B Core Total Ab Hepatitis C Antibody 06/08/18 06/08/18 06/08/18 03:15 03:15 03:15 WBC 21.71 H Absolute Seg Neuts 16.93 H Absolute Lymphocytes 1.09 INR 1.77 H Creatinine 3.6 H Total Bilirubin 7.4 H Conjugated Bilirubin 6.0 H Unconjugated Bilirubin 1.4 H AST 106 H ALT 73 H Alkaline Phosphatase 1389 H Procalcitonin 3.76 H Hep Bs Antigen Hep Bs Antibody Hep B Core Total Ab Hepatitis C Antibody Ongoing monitoring for antimicrobial toxicity with: CBC, BMP, interval historical information, and interval physical exam. [id number] time with patient: 53 minutes with >50% of [id number] time spent in counseling, patient education, and coordinating care. Counseling provided included the microbiology of abdominal infections, abscesses including in the liver, expected time to resolution, natural history without treatment, and side effects of treatment.
--- NOTE | 2018-06-08 14:11 | SOAPPROG ---
SOAP Progress Note Assessment/Plan: Assessment: SKYE, creat remains stable in low 3's metastatic parathyroid cancer, large liver mass, PTH 2562, discussion Tuesday with her oncologist at [facility], Dr. Lassiter, she doesn't remember much, she slept through most of it, but her family was there hypokalemia, supps underway volume overload and peripheral edema, diuresing, will change to bumex for better bioavailability in edematous gut, will give some IV lasix and albumin as well, as needed proteinuria, not nephrotic Up/c about 1.2g/g creat acidosis, adjusted bicarb hypomagnesemia, supps underway anemia, multifactorial UOP remains quite reasonable, generally about 2L daily, need to make sure all UOP is recorded Plan: Supp K as needed Supp Mg, as needed continue diuresis echo results reviewed no urgent HD needs, talked about dialysis as a means of volume removal, again, having about 2L UOP daily which is probably in the range we would be able to remove on dialysis. All questions answered Had an appt with oncology at [place] (Dr. Lassiter) Tuesday, since she was in the hospital, had phone conference instead. 06/01/18 10:00 06/02/18 09:20 06/03/18 14:00 06/04/18 13:10 06/07/18 08:49 06/08/18 14:08 Subjective: family at bedside got up to chair and subsequently vomited no cp SOB about at baseline ate lunch, but then vomited frustrated, doesn't want to talk about it today Objective: Vital Signs Temp Pulse Resp BP Pulse Ox 36.4 C 102 H 20 148/99 H 96 06/08/18 12:00 06/08/18 12:00 06/08/18 07:22 06/08/18 12:00 06/08/18 12:00 Laboratory Results 06/08/18 03:15 06/08/18 03:15 06/07/18 06/08/18 06/09/18 05:59 05:59 05:59 Intake Total 920 1000 Output Total 725 300 Balance 195 700 PT 19.8 SEC (12.0-15.0) H 06/08/18 03:15 INR 1.77 (0.83-1.16) H 06/08/18 03:15 Physical Exam - Physical Exam General Appearance: alert, mild distress Neck: normal inspection Respiratory: No rhonchi, No wheezing Cardiac/Chest: regular rate, rhythm, edema, No friction rub Abdomen: normal bowel sounds, non-tender, other (distended) Skin: warm/dry Extremities: swelling Neuro/Psych: alert, depressed affect ICD10 Worksheet Patient Problems: Problems Problem Status Onset Congestive heart failure Acute Acute kidney injury (nontraumatic) Acute Hypercalcemia Acute
--- NOTE | 2018-06-08 15:22 | SOAPPROG ---
SOAP Progress Note Assessment/Plan: Assessment: 1. 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 She will need a change in therapy as an outpatient to either lenvatinib or sorafenib, however, these drugs are not well studied in the setting of both renal and hepatic insufficiency. Ideally her renal and hepatic function will be improved adequately upon discharge. She is followed by Dr. Lassiter at [facility] for this problem. 2. Transaminitis/hyperbilirubinemia - GI input appreciated. T.Bili continues to climb and is now 7.4. INR is now 1.77 without anticoagulation. NH3+ is elevated at 69. She has significant hepatic dysfunction (Child Class C) 3. Ansarca 4. Chronic renal insufficiency - Cr. 3.4. Slightly worse today. 5. CML - Tasigna is held due to hepatic dysfunction. Her WBC has jumped from 7 to 21k. Some of this elevation may be related to her CML but could also be reactive to her malignancy and/or infectious. Karen tells me she is going to go home tomorrow with palliative care. She verbalized to me spontaneously that she felt that she was not likely to get better from her multi organ system disfunction. Plan: Multiorgan dysfunction. Unclear how much/if any is reversible. Trying to improve any reversible component. Functional status is poor. Her liver continues to deteriorate. Will hold Tasigna to see if it is contributing to her hepatic dysfunction. She tells me she will be going home tomorrow with palliative care. I think this is reasonable. Subjective: "I'm going home tomorrow" Objective: Vital Signs Temp Pulse Resp BP Pulse Ox 36.4 C 102 H 20 148/99 H 96 06/08/18 12:00 06/08/18 12:00 06/08/18 07:22 06/08/18 12:00 06/08/18 12:00 Laboratory Results 06/08/18 03:15 06/08/18 03:15 06/06/18 06/07/18 06/08/18 23:59 23:59 23:59 Intake Total 750 1420 200 Output Total 825 300 200 Balance -75 1120 0 PT 19.8 SEC (12.0-15.0) H 06/08/18 03:15 INR 1.77 (0.83-1.16) H 06/08/18 03:15 Physical Exam - Physical Exam General Appearance: mild distress EENT: scleral icterus (R), scleral icterus (L) Respiratory: decreased breath sounds (at bases), No crackles, No rales Cardiac/Chest: regular rate, rhythm Abdomen: distended Extremities: pedal edema, swelling (anasarca) Neuro/Psych: other (flat affect) ICD10 Worksheet Patient Problems: Problems Problem Status Onset Congestive heart failure Acute Acute kidney injury (nontraumatic) Acute Hypercalcemia Acute
[2018-06-08] MEDS: morphINE 10 MG/0.5 ML UDSYR PO PRN ×2 (16:46→21:12)
[2018-06-08] MEDS: MELATONIN 3 MG TAB PO PRN (21:04)
[2018-06-08] MEDS: SERTRALINE HCL 50 MG TAB PO SCH (21:05)
[2018-06-08] MEDS: SODIUM BICARBONATE 650 MG TAB PO SCH (22:08)
[2018-06-09 06:35] LABS: PLATELET COUNT 224 10^3/uL (150-400)
--- NOTE | 2018-06-09 07:37 | SOAPPROG ---
SOAP Progress Note Assessment/Plan: Assessment: SKYE, creat remains stable in low 3's, up today metastatic parathyroid cancer, large liver mass, PTH 2562, discussion Tuesday with her oncologist at [facility], Dr. Lassiter, she doesn't remember much, she slept through most of it, but her family was there hypokalemia, supps underway volume overload and peripheral edema, diuresing, changed to bumex for better bioavailability in edematous gut, will give some IV lasix and albumin as well, as needed proteinuria, not nephrotic Up/c about 1.2g/g creat acidosis, bicarb anemia, multifactorial UOP seems to be slowing down Plan: Supp K as needed Supp Mg, as needed continue diuresis echo results reviewed no urgent HD needs, talked about dialysis as a means of volume removal, does not want dialysis. Palliative care coming to her home tomorrow, home later today. All questions answered 06/01/18 10:00 06/02/18 09:20 06/03/18 14:00 06/04/18 13:10 06/07/18 08:49 06/08/18 14:08 06/09/18 07:33 Subjective: emotionally tired slept OK last night still with some SOB comfortable with her decision to go home with palliative care nausea and vomiting yesterday, feels better this AM Objective: Vital Signs Temp Pulse Resp BP Pulse Ox 36.5 C 102 H 14 119/100 H 95 06/09/18 03:49 06/09/18 03:49 06/09/18 03:49 06/09/18 03:49 06/09/18 03:49 Laboratory Results 06/09/18 06:20 06/09/18 06:20 06/08/18 06/09/18 06/10/18 05:59 05:59 05:59 Intake Total 1000 500 Output Total 300 250 Balance 700 250 PT 19.8 SEC (12.0-15.0) H 06/08/18 03:15 INR 1.77 (0.83-1.16) H 06/08/18 03:15 Physical Exam - Physical Exam General Appearance: alert Respiratory: No rales, No wheezing Cardiac/Chest: regular rate, rhythm, edema, systolic murmur Abdomen: normal bowel sounds, non-tender, other (ascites) Extremities: swelling Neuro/Psych: alert, normal mood/affect, oriented x 3 ICD10 Worksheet Patient Problems: Problems Problem Status Onset Congestive heart failure Acute Acute kidney injury (nontraumatic) Acute Hypercalcemia Acute
[2018-06-09] MEDS: LEVOTHYROXINE 125 MCG TAB PO SCH (09:09)
[2018-06-09] MEDS: BUMETANIDE 1 MG TAB PO SCH (11:11)
[2018-06-09] MEDS: CALCIUM CARBONATE 500 MG CHEWABLE TAB PO SCH (11:11)
[2018-06-09] MEDS: PANTOPRAZOLE SODIUM 40 MG TAB PO SCH (11:11)
[2018-06-09] MEDS: LACTULOSE 20 GM/30 ML UDCUP PO SCH (11:12)
[2018-06-09 11:15] VITALS: BP 134/86
--- NOTE | 2018-06-09 13:20 | PDIAF ---
- Diagnosis Diagnosis: met parathyroid cancer Code Status: Full Code - Medication Management Discharge Medications: electronically signed and located in the Home Medication List. - Orders Services needed: Home Care, Registered Nurse, Certified Smeller, Physical Therapy, Occupational Therapy Home Care Face to Face: I certify that this patient was under my care and that I had the required [id number] encounter meeting the encounter requirements on the discharge day. My findings support the fact that the patient is homebound as defined in Home Care Face to Face Continued: CMS Chapter 7 Medicare Benefits Manual 30.1.1 , The condition of the patient is such that there exists a normal inability to leave home and consequently, leaving home would require a considerable and taxing effort. Isolation Type: Chemotherapy Isolation Diet Recommendation: sodium restricted Diet Texture: Regular Texture Diet, Thin Liquids, Meds Whole w/Liquids, Meds Crushed in Puree Additional Instructions: Activity: as tolerated F/U: with Oncology as agreed. With Palliative care - Follow Up Care Current Providers and Referrals: DAV MORALEZ [Primary Care Provider] - As per Instructions
--- NOTE | 2018-06-09 13:28 | PDDCSUM ---
Discharge Summary Discharge Summary: 47 yo F w/ hx of metastatic parathyroid carcinoma with recent complicated course at the [facility] where she had abdominal surgery complicated by pelvic abscess admitted with anasarca. She was admitted. Imaging showed metastatic hepatic mass. She developed liver failure with elevated LFT's and INR. Please see below for complete details. At the time of discharge, the pt and her are aware of her disease process and prognosis. They will have palliative care meet with them once they get home. They are not ready for hospice and want to have one more f/u meeting with their oncologist at the [facility]. She is alert and oriented and has capacity to make decisions. DDX: #Anasarca: Multifactorial from renal, hepatic processes and pHTN. Good UOP. Weight stable. Overall this is appropriately controlled. Higher amounts of diuretics have not been chosen given worsening renal function. - cont Bumex. #Liver failure: Worsening labs. -due to metastatic disease -GI consulted but signed off, no reversible causes identified - Stopped Tasigna -monitor LFTs and INR. INR today remains elevated #Hepatic Encephalopathy, mild -ammonia is elevated -start Lactulose. She refused to take yesterday, but is considering taking going forward. #SKYE on CKD: Likely new baseline low 3s. Recent injury from hyperCa and hypotension/ATN. - Renal was consulted. Overall stable. #End stage Metastatic parathyroid carcinoma: Mets to liver, lungs, LNs, and ovaries. - Palliative care following, pt not ready for hospice yet - D/w her primary oncologist Dr Lassiter. He would like to try her on multi- kinase inhibitor (lenvatinib or sorafenib) once out of hospital. This will need to be discussed on follow up #Hypokalemia, hypomag: stable and replaced #Syncopal episode: Tele quiet. Non-focal neuro exam. No further episodes. #Pulmonary hypertension: Due to nae, fluid overload. - Uses CPAP #Indeterminate troponin: Demand in setting of volume overload, peaked 0.25. TTE without WMA. - Hold on ischemic evaluation #Right pelvic wall abscess: S/p 3 weeks of zosyn (stopped d/t worsening liver fxn). - No signs of infection on admission. recent outpt blood cultures negative. - New Leukocytosis noted on 06/07 and has increased since. WBC today is 25. no fever or other signs of infection. We consulted ID and they agree with no antibiotics at this time. - blood culture on 06/07 remains negative - VS stable #Hypocalcemia: This is interesting given her cancer. She has been severely hypercalcemic in the past. - Monitor on telemetry #AGMA: D/t renal failure. - Now on bicarb and improved #Normocytic anemia: Stable. Likely d/t recent surgery in setting of renal dysfunction. - s/p EPO #CML: In remission, f/b Dr Fonseca at [facility]. - Stopping nilotinib. #Subclinical hypothyroidism - Cont LT4 replacement #Recent rectus sheath hematoma: Per corhio, too small for surgical intervention. No e/o bleeding. #Deconditioning: D/t prolonged hospital course. - PT/OT consulted #Sinus tachycardia: Persistent since last hospitalization. Remains in 100s. #Encephalopathy, metabolic, multifactorial, today she is very clear and understands prognosis and course Exam: NAD JAUNDICED RRR DECREASE LUNG SOUNDS, NORMAL WORK OF BREATHING SOFT, NON TENDER, MILD DISTENTION 3+ EDEMA MEDS: SEE MED REC TOTAL TIME SPENT ON D/C IS 45 MINS
--- NOTE | 2018-06-09 13:43 | ASMTLACE ---
ALFAE Length of stay for Answers: 7-13 days current admission Acuity / Level of Answers: Yes Care: Did the patient have an inpatient admission? Comorbidities - select Answers: Any tumor (including all that apply lymphoma or leukemia) Congestive heart failure Opioid dependence / Chronic pain Other Notes: HTN; CML # of Emergency department Answers: 1-2 visits in the last 6 months Social determinants Answers: Mental health diagnosis (anxiety, depression, pers onality disorders, etc.) Score: 21 Date Signed: 06/09/2018 01:43 PM Electronically Signed By:Charity Smalls RN
--- NOTE | 2018-06-09 13:46 | ASMTDCNOTE ---
Case Management Discharge Discharge Order Complete? Answers: Yes Patient to Obtain Answers: via Family Medications Transportation Arranged Answers: Family/Friends Faxed Final Orders Answers: Yes Notes: [facility] and [facility] Agency/Facility Transfer Answers: Yes Notes: [facility] and [facility] Report Printed & Faxed to palliative Receiving Agency Family Notified Answers: Yes Notes: in room Discharge Comments Notes: 06/09/2018 Case Management Note Faxed final orders to [facility]. Phone call to [facility] liakamila [place] requesting home visit over the weekend. also in touch with [facility]. Faxed final orders to [facility]. arranged visit for Tuesday at home. Case Management d/c poc: Home with [facility] and [facility] Date Signed: 06/09/2018 01:45 PM Electronically Signed By:Charity Smalls RN
--- NOTE | 2018-06-09 13:47 | ASDISCHSUM ---
Discharge Information Plan Status:Home with Home Health Medically Cleared to Leave:06/09/2018 Discharge Date:06/09/2018 CM D/C Disposition:Home Health Service ADT D/C Disposition:Home Health Service Projected Discharge Date:06/04/2018 11:00 AM Transportation at D/C:Family Discharge Delay Reason: Follow-Up Date:06/04/2018 11:00 AM Discharge Slot: Final Diagnosis: Placement Information Referral Type:Home Infusion Referral ID:[id number] Provider Name: Address 1: Phone Number: Address 2: Fax Number: City: Selection Factors: State: Referral Type:Palliative Care Referral ID:[id number] Provider Name:[facility] Address 1:[address] Address 2: City:[place] Selection Factors: State:[place] Referral Type:*Home Health Care Services Referral ID:[id number] Provider Name: Home Health [facility] ([facility]) Address 1:[address] [address] Address 2: City:[place] Selection Factors: State:[place] Patient Contact Information Contact Name:CONSTANTINO Relationship:Trixie Address:[address] Home Phone: City:[facility] Phone: [facility]/Zip Code:[place] [address] Email: Financial Information Financial Class:HMO and PPO Plans Primary Plan Desc:[facility] Primary Plan Number:[id number] Secondary Plan Desc: Secondary Plan Number: Assessment Information LACE LACE Length of stay for Answers: 7-13 days current admission Acuity / Level of Answers: Yes Care: Did the patient have an inpatient admission? Comorbidities - select Answers: Any tumor (including all that apply lymphoma or leukemia) Congestive heart failure Opioid dependence / Chronic pain Other Notes: HTN; CML # of Emergency department Answers: 1-2 visits in the last 6 months Social determinants Answers: Mental health diagnosis (anxiety, depression, pers onality disorders, etc.) Score: 21 Date Signed: 06/09/2018 01:43 PM Electronically Signed By:Charity Smalls RN [facility] Progress Note CM Note CM Note Notes: Pts case discussed in tx rounds. Pt is a 47 y/o female admitted for CHF and elevated troponin. Pt will most likely d/c independent when medically stable. No therapies ordered at this time. CM available for changes. Plan: Independent Date Signed: 05/31/2018 02:32 PM Electronically Signed By:GRANT Mckenzie [facility] Progress Note CM Note CM Note Notes: Spoke with pt and her friend in the room. Pt lives with and has a 16 year old son in the home. Pt very somnolent at time of interview with case management and requested some support at home post discharge. CM left message for [facility] [employer] on [employer] to contact pt and provided a list of private duty agencies for unskilled support. CM also provided application for There with Care since pt has a child in the home. Pt and friend report she is very unsteady on her feet due to anasarca and are hoping for [facility] PT/OT upon discharge. Order placed for PT/OT to evaluate here. D/C Plan: TBD possibly HHC pending evals Date Signed: 06/02/2018 02:51 PM Electronically Signed By:Cece Glez [facility] CM Progress Note CM Note CM Note Notes: ADDENDUM: Pt current with [facility]. updates sent to them. Date Signed: 06/02/2018 04:15 PM Electronically Signed By:Cece Glez [facility] CM Progress Note CM Note CM Note Notes: A "[facility]" application has been started for the patient. CM unable to assist with finsihing it today due to medical reasons. Patient's nurse states follow up tomorrow will be better. CM will follow. Date Signed: 06/04/2018 04:14 PM Electronically Signed By:Maribel Hankins LCSW [facility] CM Progress Note CM Note CM Note Notes: Pts case discussed in tx rounds. Dr. Willson is recommending that pt goes home w/ HC RN and ABA THERAPIST. CM met w/ pt and for dispo planning. They do not have a preference on HC agency as long as it is covered by their insurance. Referral sent to [facility] per the request of the family. The [facility] doctor stopped by and met w/ pt and today. CM to follow. Plan: HC; RN, ABA THERAPIST with [facility] Date Signed: 06/06/2018 03:01 PM Electronically Signed By:GRANT Mckenzie [facility] CM Progress Note CM Note CM Note Notes: Pts case discussed in tx rounds. [facility] is able to staff this case. Winsome from [facility] met w/ pt and told her that she will most likely have a to pay out of pocket until deductible met then pay 20% per visit after that. Pt was agreeable to paying. Pt will most likely d/c either tomorrow or Tuesday. CM to follow. Plan: [facility] w/ [facility]; ALICIA, ABIGAIL Date Signed: 06/07/2018 12:06 PM Electronically Signed By:GRANT Mckenzie Case Management Discharge Plan Note Case Management Discharge Discharge Order Complete? Answers: Yes Patient to Obtain Answers: via Family Medications Transportation Arranged Answers: Family/Friends Faxed Final Orders Answers: Yes Notes: [facility] Agency/Facility Transfer Answers: Yes Notes: [facility] and [facility] Report Printed & Faxed to palliative Receiving Agency Family Notified Answers: Yes Notes: in room Discharge Comments Notes: 06/09/2018 Case Management Note Faxed final orders to [facility]. Phone call to [facility] irma [place] requesting home visit over the weekend. also in touch with [facility]. Faxed final orders to [facility]. arranged visit for Tuesday at home. Case Management d/c poc: Home with [facility] and [facility] Date Signed: 06/09/2018 01:45 PM Electronically Signed By:Charity Smalls RN Intervention Information
== END 2018-06-09 15:40 | disposition home health service (06) | DRG 682 ==
LOC: F2W 23:49
PROVIDERS: ADMIT Student in an Organized Health Care Education/Training Program; ATTEND Student in an Organized Health Care Education/Training Program
DX: N17.0 Acute kidney failure with tubular necrosis (principal); G93.41 Metabolic encephalopathy; C91.11 Chronic lymphocytic leukemia of B-cell type in remission; C75.0 Malignant neoplasm of parathyroid gland; C78.7 Secondary malignant neoplasm of liver and intrahepatic bile duct; C78.00 Secondary malignant neoplasm of unspecified lung; C79.89 Secondary malignant neoplasm of other specified sites; C79.60 Secondary malignant neoplasm of unspecified ovary; K72.90 Hepatic failure, unspecified without coma; N18.9 Chronic kidney disease, unspecified; E83.52 Hypercalcemia; E87.6 Hypokalemia; E83.42 Hypomagnesemia; I27.29 Other secondary pulmonary hypertension; G47.33 Obstructive sleep apnea (adult) (pediatric); D64.9 Anemia, unspecified; E02 Subclinical iodine-deficiency hypothyroidism; R00.0 Tachycardia, unspecified
CPT/HCPCS: 82607-90; 83010-90; 84484-ER; 86334-90; 86704-90; 92610-GN; 97110-GO; 97161-GP; 97166-GO; 97535-GO; G0472; J0885; J1644; J1940; J2997; J3475; J3480; P9047